=== PATIENT | male | born 1955 | race Caucasian/White ===

== ENCOUNTER 2018-10-22 11:01 | Inpatient (IN) | payer MEDICARE, MEDICAID, SELFPAY ==
[2018-10-22] VITALS (28 sets, daily range): BP systolic 92–123; BP diastolic 55–89; PULSE 64–151; RESP 20–35; TEMP 36.7–37.2; O2SAT 90–95; BMI 24.1; BMI 23.2
--- NOTE | 2018-10-22 11:24 | EKG12_ITS ---
Test Reason : CHEST PAIN Blood Pressure : / mmHG Vent. Rate : 138 BPM Atrial Rate : 133 BPM P-R Int : 000 ms QRS Dur : 068 ms QT Int : 314 ms P-R-T Axes : 000 009 122 degrees QTc Int : 475 ms Atrial fibrillation with rapid ventricular response Septal infarct , age undetermined T wave abnormality, consider lateral ischemia Abnormal ECG Confirmed by HENNY SLADE, SHEN ([id number]), video editor JOESPH CLAIRE ([id number]) on 10/28/2018 9:59:55 AM Referred By: Kim Barnhart Confirmed By:SHEN INMAN MD
--- NOTE | 2018-10-22 11:34 | ED.DCSUM_ITS ---
- ER Visit Summary Date of Service: 10/22/18 Chief Complaint: Shortness of breath History of Present Illness: The patient is a 62 M with history of dementia secondary from chronic alcohol abuse and dependence who is currently at a alf facility presents to the emergency department increasing dysp [place]. The patient states that he had shortness of breath for 6 months. However, based on history gathered from the nursing home assistant at the bedside he had increasing cough, productive sputum, and generalized malaise over the past 2 days. He does not think that he has fevers. He does have a history of COPD but is not on oxygen. He denies any chest pain. He denies any abdominal pain. He denies any leg swelling. He is unsure if he got a flu shot this year. Physical Examination: Vital signs reviewed General: Well-nourished, well-developed Head: Normocephalic, atraumatic Eyes: Pupils equal and reactive, extraocular muscles intact Neck, supple, no lymphadenopathy Heart: Irregular tachycardic rate and rhythm Respiratory: Diminished air movement in all willis Abdomen: Soft, nontender, nondistended, no peritoneal signs Back: Nontender Extremities: Nontender, no edema, no cords Skin: Normal color no rash Neuro: Alert and oriented, no focal or lateralizing deficits Test Results: [] Emergency Department Course and Treatment: [EKG was obtained on patient arrival. It did demonstrate atrial fibrillation with rapid ventricular response. The patient has no history of this. He was kept on a monitor. My concern was that this may be because of underlying infectious process. IV was established. Patient was given fluids. Screening labs are obtained were relatively unremarkable. His d-dimer was elevated. In light of his new A. fib, I did obtain a CTA of his chest. This does demonstrate multiple nonocclusive pulmonary emboli and a right lower lobe infiltrate. The patient was given diltiazem with improvement of his heart rate. At this time, I do feel that he can require admission especially given his hypoxia. He was covered for community-acquired pneumonia given his right lower lobe infiltrate. The patient was discussed with the hospitalist. He will be started on Eliquis and will be admitted to the PCU. Treatment Plan: [] Disposition: Admission Impression: 1. Community-acquired pneumonia 2. Multiple nonocclusive pulmonary emboli 3. New onset atrial fibrillation with rapid ventricular response 4. Hypoxia This note was generated with [employer] dictation software. It may contain incorrect words, spelling, and punctuation that were not noted in review of the chart prior to signing ED Disposition - Plan for ED Patient: Referrals: Maxi Steele [Primary Care Provider] -
--- NOTE | 2018-10-22 11:36 | RAD_ITS ---
STUDY: X-RAY CHEST REASON FOR EXAM: Male, 62 years old. Cough. Lethargy and shortness of breath. TECHNIQUE: Single AP portable view of the chest. COMPARISON: Comparison is made with prior study dated March 29, 2016. FINDINGS: EKG electrodes are seen. Mild degree of increased markings at the lung bases suggestive of bibasilar atelectasis and/or early infiltrate. Blunting of the right costophrenic angle. Normal size heart. Normal mediastinum and jan. Normal visualized pulmonary arteries. There is atherosclerotic tortuosity of the aortic arch and descending thoracic aorta. There are diffuse degenerative changes of the visualized thoracic spine. Healed bilateral rib fractures. There is no demonstrated abnormality of the visualized soft tissue structures of the upper abdomen. RAD/Chest 1 View (Portable) IMPRESSION: Increased markings at the lung bases suggestive of bibasilar atelectasis and/or infiltrates. Blunting of the right costophrenic angle. Electronically Signed: Harvinder Garcia MD at 12:28 EST , Service support ,
[2018-10-22 11:41] LABS: Allen Test POS; Base Excess 0 mmol/L (-2 to +2); Bicarbonate 24.9 mmol/L (22-26); Blood Gas Specimen Type ART; O2 Delivery Device Nasal Can; PO2 68 mmHG (75-100); SITE L Radial; SO2 93 % (95-99); Time Given 1125; Total Carbon Dioxide 26 mmol/L; pCO2 40.2 mmHg (35-45)
[2018-10-22] MEDS: Ipratropium/Albuterol Sulfate 3 ML AMPUL.NEB INHALATION ×4 (11:46→23:15)
[2018-10-22 11:53] LABS: Absolute Lymphocyte Count 0.89 X10^3/ul (0.83-4.51); Absolute Neutrophil Count 5.5 X10^3/uL (2.0-7.7); Basophil# 0.02 X10^3/uL; Basophil% 0.3 % (0-1); Eosinophil# 0.08 X10^3/uL; Eosinophils% 1.1 % (0-5); Hematocrit 41.9 % (40-54); Hemoglobin 13.8 g/dl (13.0-16.5); Lymphocyte # 0.89 X10^3/ul (4.0); Lymphocyte % 12.2 % (19-41); Mean Corp Hgb Conc 32.9 g/gl (32-36); Mean Corpuscular Hgb 30.9 pg (27.0-32.0); Mean Corpuscular Volume 93.9 fL (80-94); Mean Platelet Vol. 11.7 fl (6.2-12.0); Monocyte# 0.77 X10^3/uL; Monocyte% 10.6 % (0-10); Neutrophil # 5.51 X10^3/uL (2.7-7.7); Neutrophil % 75.8 % (47-70); Platelet Count 148 K/mm3 (150-450); RBC Distribution Width CV 13.8 % (11.6-14.6); RBC Distribution Width SD 47.4 fl (35.1-43.9); Red Blood Count 4.46 M/mm3 (4.6-6.2); White Blood Count 7.3 K/mm3 (4.4-11.0)
[2018-10-22] MEDS: Albuterol 2.5 MG/3 ML VIAL.NEB. INHALATION ×3 (11:53)
[2018-10-22 11:54] LABS: POSITIVE COUNT NO; POSITIVE DIFFERENTIAL NO; POSITIVE MORPHOLOGY NO; Partial Thromboplast Time 27.8 Seconds (24.1-36.2); Prothrombin Time (Protime)PT. 12.9 SECONDS (11.7-14.9)
[2018-10-22 11:59] LABS: D-Dimer Quantitative (DVT/PE) 1.03 FEU/ug/m (0.27-0.49)
--- NOTE | 2018-10-22 12:02 | CT_ITS ---
STUDY: CTA CHEST REASON FOR EXAM: Male, 62 years old. Hypoxia and cough. RADIATION DOSAGE (If Supplied By Facility): CTDIvol = ( 16.30 ) mGy, DLP = ( 613.14 ) mGycm TECHNIQUE: The examination was performed with the intravenous administration of 100CC ml of Isovue 370 contrast material. Post-processing of the angiographic images was performed, with multiplanar reformation and 3D reconstruction. Individualized dose optimization techniques were used for this CT. COMPARISON: None. FINDINGS: There are several small nonocclusive filling defects in branches of the lower lobe pulmonary artery branches suggestive of a pulmonary emboli. Normal thoracic aorta and visualized great vessels. There is no demonstrated aortic dissection. Normal heart and pericardium. Normal mediastinum. Normal hilar regions. Normal visualized trachea and bronchi. The lungs are well expanded. There is evidence of right lower lobe infiltrate. Small right pleural effusion. Mild increased markings at the left lung base suggestive of atelectasis. Normal chest wall structures. There are degenerative changes of thoracic spine. Normal visualized upper abdomen. CT/CTA Chest W/WO Contrast IMPRESSION: There are several small nonobstructive pulmonary emboli in the lower lobe pulmonary arterial branches. Right lower lobe infiltrate with small right pleural effusion. Atelectasis at the left lung base. Electronically Signed: Harvinder Garcia MD at 12:53 EST , Service support ,
--- NOTE | 2018-10-22 12:06 | ED.RN ---
LAB CALLS WITH CRITICAL RESULT, D-DIMER 1.03, DR. SOTO MADE AWARE.
[2018-10-22 12:11] LABS: ALB/GLOB Ratio 0.9 RATIO (0.9-2.4); AST(SGOT) 24 U/L (15-37); Alanine Aminotransfer ALT/SGPT 25 U/L (16-61); Alkaline Phosphatase 69 U/L (45-117); Anion Gap 8 (5-15); BUN 9 mg/dL (7-18); BUN/Creat Ratio 17.5 RATIO (10-20); Calcium,Total 8.3 mg/dL (8.5-10.1); Chloride 102 mmol/L (98-107); Creatinine, Serum 0.52 mg/dL (0.70-1.30); EST Glomerular Filtration Rate 172 mL/min (>60); Est Glom Filt Rate - Afr Amer 208 mL/min (>60); Estimated Creatinine Clearance 169.05 ml/min; Globulin 3.3 g/dL (2.2-4.2); Glucose 81 mg/dL (74-106); Potassium 3.8 mmol/L (3.5-5.1); Protein, Total 6.3 g/dL (6.4-8.2); Sodium Level 135 mmol/L (136-145)
[2018-10-22 12:43] LABS: Lactic Acid 1.2 mmol/L (0.4-2.0)
[2018-10-22] MEDS: dilTIAZem 25 MG/5 ML Vial 15 MG IV BOLUS (13:17)
--- NOTE | 2018-10-22 13:33 | NURSING ---
DR ALVAREZ FOR DR SOTO
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
--- NOTE | 2018-10-22 13:46 | NURSING ---
123 PAINTSIL PE, AFIB RVR
[2018-10-22] MEDS: Ceftriaxone 1 GM/50 ML BAG IV (13:52)
--- NOTE | 2018-10-22 14:54 | VDLE_ITS ---
Reason For Study: PE RIGHT LEFT GSV is normal. GSV is normal. CFV is compressible, spontaneous, phasic, CFV is compressible, spontaneous, phasic, competent and demonstrates normal competent, and demonstrates normal augmentation. augmentation. FV is compressible, spontaneous, phasic, FV is compressible, spontaneous, phasic, competent and demonstrates normal competent and demonstrates normal augmentation. augmentation. POP V is compressible, spontaneous, phasic, POP V is compressible, spontaneous, phasic, competent and demonstrates normal competent and demonstrates normal augmentation. augmentation. T/P Trunk is compressible. T/P Trunk is compressible. PTV is compressible. PTV is compressible. RT PerV is compressible. LT PerV is compressible. Procedure Exam performed portable in patient room. The exam was diagnostic. A preliminary report was called and/or faxed to the pt's RN. Interpretation Summary No evidence for acute deep venous thrombosis bilateral lower extremities with patent and compressible bilateral great saphenous veins. Ordering Physician: Kim Barnhart Performed By: Keith Bradford RVT
--- NOTE | 2018-10-22 14:54 | ECHOD_ITS ---
Reason For Study: AFIB Procedure This was a 2D Doppler, Color Flow transthoracic echocardiogram. Technically limited study due to several factors including 120-150bpm and pt breathing and coughing erratically. Exam performed portable in patient room. Left Ventricle Normal LV size. The estimated ejection fraction is 50 %. Unable to assess diastolic dysfunction due to arrhythmia. There is mild global hypokinesis of the left ventricle. Right Ventricle Normal RV size. Normal systolic function. Atria The left atrium is mildly enlarged. The right atrium is mildly enlarged. Mitral Valve Normal mitral valve. Tricuspid Valve Normal tricuspid valve. Mild to moderate (1-2+) tricuspid valve insufficiency. Pulmonary artery systolic pressure is 40 mmHg. Aortic Valve Trisinus/trileaflet aortic valve. Pulmonic Valve Normal pulmonic valve. Great Vessels Normal aortic root. The pulmonary artery is normal size. Normal inferior vena cava. Pericardium/Pleural No pericardial effusion. MMode/2D Measurements & Calculations LVIDd: 4.0 cm IVSd: 1.0 cm Ao root diam: 3.0 cm LVIDs: 3.0 cm LVPWd: 1.1 cm RVDd: 4.1 cm FS: 26.9 % LAV(MOD-bp): 70.8 ml LA A4 area: 25.5 cm2 LA dimension(2D): 4.1 cm LAV(MOD-bp) Indexed: 33.3 ml/m2 LAV(MOD-sp2): 49.0 ml LAV(MOD-sp4): 74.0 ml RA A4 area: 23.4 cm2 Doppler Measurements & Calculations Ao V2 max: 153.8 cm/sec LV V1 max: 84.4 cm/sec TR max db: 300.0 cm/sec Ao max P.5 mmHg LV V1 max P.9 mmHg TR max P.0 mmHg Interpretation Summary Normal LV size. The estimated ejection fraction is 50 %. There is mild global hypokinesis of the left ventricle. Pulmonary artery systolic pressure is 40 mmHg. Unable to assess diastolic dysfunction due to arrhythmia. Ordering Physician: Kim Barnhart Referring Physician: SEA RODRIGUEZ Performed By: Clau Ayon, RDCS, RVT
--- NOTE | 2018-10-22 15:17 | CASEMGMT ---
RN CM Assessment Presentation: Afib with RVR, CAP, PMHx: schizoaffective disorder, dementia, hx ETOH abuse, Seizure PCP: Dr. Maxi Steele Preferred Pharmacy: [facility] Insurance: [facility] part B, [facility] Prescription Benefit: yes LNOK: Aaron Parra, Guardian (not in demographics. Mejia CARRERA obtaining detailed information. Living Arrangements: [facility] DC PLAN: Return to SNF on discharge
[2018-10-22 15:21] LABS: Magnesium 2.1 mg/dL (1.6-2.6); Thyroid Stim Hormone (TSH) 2.55 uIU/mL (0.358-3.74)
[2018-10-22] MEDS: 0.9% Normal Saline 1,000 ML 75 ML IV (15:25)
--- NOTE | 2018-10-22 15:34 | CASEMGMT ---
Patient is from [facility]. He has a legal guardian named Ramez Parra. 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 SW to follow for d/c back to [facility]. Melani WASHINGTON MSW
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
--- NOTE | 2018-10-22 17:08 | EKG12_ITS ---
Test Reason : CONVERT TO NSR Blood Pressure : / mmHG Vent. Rate : 073 BPM Atrial Rate : 073 BPM P-R Int : 162 ms QRS Dur : 070 ms QT Int : 410 ms P-R-T Axes : 062 034 -81 degrees QTc Int : 451 ms Sinus rhythm with frequent Premature ventricular complexes T wave abnormality, consider inferior ischemia T wave abnormality, consider anterolateral ischemia Abnormal ECG Confirmed by HENNY SLADE, SHEN ([id number]), desk editor JOESPH CLAIRE ([id number] on 10/28/2018 11:24:46 AM Referred By: Kim Barnhart Confirmed By:SHEN INMAN MD
[2018-10-22] MEDS: OLANZapine 2.5 MG Tablet PO (17:42)
[2018-10-22] MEDS: APIXABAN 5 MG TABLET 10 MG PO (17:42)
[2018-10-22] MEDS: dilTIAZem CD 120 MG Capsule PO (17:43)
--- NOTE | 2018-10-22 19:45 | NURSING ---
pt in w/ PE, hpoxia, pna, afib, prior nurse had difficulty w/ med administration. swallow eval completed, pt w/ wet moist cough prior, no difficulties w/ swallowing liquid or applesauce. Speech therapy to eval pt 2/ for precautionary measure.
[2018-10-22] MEDS: Budesonide Respules 0.5 MG/2 ML AMPUL.NEB. INHALATION (19:52)
[2018-10-22 22:41] LABS: Bacteria 0 SEEN /hpf (None Seen); Mucous, Urine 0 SEEN /hpf (<or=2+); Red Blood Cells-Urine 0 SEEN /hpf (0-5)
[2018-10-22 22:44] LABS: Color, Urine Yellow (Yellow); Glucose, Dipstick Normal (Normal); Ketone-Dipstick 5 mg/dl (Negative); Leukocyte Esterase-Dipstick 100 /ul (Negative); Nitrite-Dipstick Negative (Negative); Occult Blood-Urine 10 /ul (Negative); Protein-Dipstick 30 mg/dl (Negative); Specific Gravity, Urine 1.005 (1.002-1.030); Urine Bilirubin Dipstick Negative (Negative); Urine Clarity Clear (Clear); Urine Urobilinogen Normal (Normal)
[2018-10-22 22:52] LABS: Squamous Epithelial Cells - UA 0-5 SEEN /hpf (0-5); White Blood Cells 0-5 SEEN /hpf (0-5)
[2018-10-23] VITALS (24 sets, daily range): BP systolic 101–126; BP diastolic 63–82; PULSE 57–78; RESP 16–26; TEMP 36.7–37.1; O2SAT 90–98
[2018-10-23] MEDS: Ipratropium/Albuterol Sulfate 3 ML AMPUL.NEB INHALATION ×5 (02:44→18:14)
[2018-10-23] MEDS: 0.9% Normal Saline 1,000 ML 75 ML IV (03:46)
[2018-10-23] MEDS: OLANZapine 2.5 MG Tablet PO ×3 (05:47→22:30)
[2018-10-23] MEDS: Budesonide Respules 0.5 MG/2 ML AMPUL.NEB. INHALATION ×2 (06:41→18:14)
[2018-10-23 06:46] LABS: Anion Gap 8 (5-15); BUN 9 mg/dL (7-18); BUN/Creat Ratio 18.3 RATIO (10-20); Chloride 108 mmol/L (98-107); Cholesterol 81 mg/dL (200); Creatinine, Serum 0.49 mg/dL (0.70-1.30); EST Glomerular Filtration Rate 181 mL/min (>60); Est Glom Filt Rate - Afr Amer 219 mL/min (>60); Estimated Creatinine Clearance 189.01 ml/min; Glucose 83 mg/dL (74-106); High Density Lipoprotein 35 mg/dL; Potassium 3.8 mmol/L (3.5-5.1); Sodium Level 142 mmol/L (136-145); Triglycerides 54 mg/dL; Very Low Density Lipoprotein 11 mg/dL (5-40)
[2018-10-23] MEDS: Aspirin 81 MG TAB.CHEW PO (08:34)
--- NOTE | 2018-10-23 09:08 | PCM.PN.BLA ---
Progress Note Remains in normal sinus rhythm. Occasional PVC on telemetry. Start on low-dose beta-yolanda. Recommend stress test as outpatient for EKG changes. Follow-up with cardiology as outpatient after discharge.
[2018-10-23] MEDS: Ceftriaxone 1 GM/50 ML BAG IV (09:44)
[2018-10-23] MEDS: APIXABAN 5 MG TABLET 10 MG PO ×2 (09:45→22:29)
[2018-10-23] MEDS: Metoprolol Tartrate 25 MG Tablet 12.5 MG PO ×2 (09:45→22:30)
[2018-10-23] MEDS: dilTIAZem CD 120 MG Capsule PO (09:46)
--- NOTE | 2018-10-23 13:40 | CASEMGMT ---
DEBI faxed clinicals to [facility]. Melani WASHINGTON PHYSICAL THERAPY ASSISTANT INSTRUCTOR
--- NOTE | 2018-10-23 14:45 | PCM.PROGNOTE ---
<Yuliana Dowd - Last Filed: 10/23/18 15:03> Patient Problems: Active and Suspected Problems Atrial fibrillation with RVR (Acute) Pulmonary emboli (Acute) CAP (community acquired pneumonia) (Acute) Dementia (Acute) Nicotine dependence (Acute) Seizure (Suspected) Subjective: Patient seen and examined. Flat affect. Denies current complaints. Denies shortness of breath. - Physical Exam General: Alert, Cooperative, No apparent distress HEENT: Atraumatic, PERRLA, EOMI, Normocephalic Oral: Moist Mucosa Neck: Supple, No JVD, Negative Carotid Bruits Lungs: Clear to auscultation, Diminished Cardiovascular: Regular rate, Regular Rhythm, Normal S1, Normal S2, No murmurs Abdomen: Bowel Sounds Present, Soft, Non Tender, Non-Distended Extremities: No clubbing, No cyanosis, No edema, Capillary Refill Less than 3 Seconds Skin: No rashes, No breakdown Musculoskeletal: No Tenderness to Palpation of Joints or Extremities Neurological: Cranial nerves II-XII grossly intact, Neuro grossly intact Psych/Mental Status: Flat Affect Vital Signs Temp Pulse Resp BP Pulse Ox 98.4 F 64 20 H 114/82 H 94 10/23/18 13:35 10/23/18 13:35 10/23/18 13:35 10/23/18 13:35 10/23/18 13:37 Oxygen Flow Rate (L/min) 4 Oxygen Delivery Method Nasal Cannula Weight: 190 lb 14.725 oz Body Mass Index (BMI) 23.2 Intake and Output for Last 24 Hours 10/21/18 10/22/18 10/23/18 23:59 23:59 23:59 Intake Total 780 / 780 1382 / 1382 Output Total 650 / 650 475 / 475 Balance 130 / 130 907 / 907 Microbiology Past 72 Hours 10/22/18 15:18 Respiratory Panel (PCR) - Final Mucosa - Nose 10/22/18 22:36 Streptococcus pneumoniae Antigen (M - Final Urine, Clean Catch Streptococcus pneumonia Ag 10/22/18 22:36 Legionella Antigen - Final Urine, Clean Catch Laboratory Tests Past 24 Hrs 10/22/18 10/22/18 10/22/18 11:33 15:36 18:22 Sodium Potassium Chloride Carbon Dioxide Anion Gap BUN Creatinine Estim Creat Clear Calc Est GFR (MDRD) Af Amer Est GFR (MDRD) Non-Af BUN/Creatinine Ratio Glucose Calcium Magnesium 2.1 Troponin I < 0.015 < 0.015 Triglycerides Cholesterol LDL Cholesterol VLDL Cholesterol HDL Cholesterol TSH 2.55 Urine Color Urine Clarity Urine pH Ur Specific [place] Urine Protein Urine Glucose (UA) Urine Ketones Urine Occult Blood Urine Nitrite Urine Bilirubin Urine Urobilinogen Ur Leukocyte Esterase Urine RBC Urine WBC Ur Squamous Epith Cells Urine Bacteria Urine Mucus 10/22/18 10/23/18 22:36 05:45 Sodium 142 Potassium 3.8 Chloride 108 H Carbon Dioxide 26.0 Anion Gap 8 BUN 9 Creatinine 0.49 L Estim Creat Clear Calc 189.01 Est GFR (MDRD) Af Amer 219 Est GFR (MDRD) Non-Af 181 BUN/Creatinine Ratio 18.3 Glucose 83 Calcium 8.0 L Magnesium Troponin I Triglycerides 54 Cholesterol 81 LDL Cholesterol 35 VLDL Cholesterol 11 HDL Cholesterol 35 L TSH Urine Color Yellow Urine Clarity Clear Urine pH 7.0 Ur Specific [place] 1.005 Urine Protein 30 H Urine Glucose (UA) Normal Urine Ketones 5 H Urine Occult Blood 10 H Urine Nitrite Negative Urine Bilirubin Negative Urine Urobilinogen Normal Ur Leukocyte Esterase 100 H Urine RBC 0 SEEN Urine WBC 0-5 SEEN Ur Squamous Epith Cells 0-5 SEEN Urine Bacteria 0 SEEN Urine Mucus 0 SEEN Medical Necessity - Tobacco Use Smoking Status: Current every day smoker Tobacco Use: Cigarettes Assessment/Plan All Active Problems Atrial fibrillation with RVR (Acute) Pulmonary emboli (Acute) CAP (community acquired pneumonia) (Acute) Dementia (Acute) Nicotine dependence (Acute) 1. Acute hypoxic respiratory insufficiency secondary to acute pulmonary embolism and community acquired pneumonia-continue supplement oxygen to maintain O2 at or above 90%. 2. Acute pulmonary embolism-chest CTA with several nonobstructive pulmonary emboli in the lower lobe pulmonary arterial branches. Right lower lobe infiltrate with small right pleural effusion. Started on Eliquis. Echocardiogram with EF 50%, pulmonary artery systolic pressure 40 mmHg. 3. Acute community-acquired right-sided strep pneumonia-chest x-ray admission with right-sided pneumonia. Continue IV azithromycin and IV Rocephin. Respiratory panel negative. Urine positive for Streptococcus pneumonia. Send sputum for culture. Albuterol and DuoNeb aerosols. 4. Atrial fibrillation with RVR-cardiology following. Currently SR. Started on beta-yolanda. Continue Eliquis. Cardiology recommending outpatient stress test. 5. Chronic COPD-no acute exacerbation. PRN albuterol. 6. Schizoaffective disorder/frontotemporal dementia/anxiety/depression/chronic alcohol dependence-continue home Zyprexa, Ativan regimen. 7. Tobacco dependence-encouraged smoking cessation. DVT prophylaxis-Eliquis. Discharge planning: Return to SNF when medically stable. This patient was seen by NIHARIKA Fitch under the supervision of Dr. Eugene. <Kerwin Eugene F - Last Filed: 10/23/18 18:20> - Physical Exam Vital Signs Temp Pulse Resp BP Pulse Ox 98.2 F 66 20 H 125/76 H 97 10/23/18 16:21 10/23/18 16:21 10/23/18 16:21 10/23/18 16:21 10/23/18 16:21 Oxygen Flow Rate (L/min) 4 Oxygen Delivery Method Nasal Cannula Weight: 190 lb 14.725 oz Body Mass Index (BMI) 23.2 Intake and Output for Last 24 Hours 10/21/18 10/22/18 10/23/18 23:59 23:59 23:59 Intake Total 780 / 780 1742 / 1742 Output Total 650 / 650 975 / 975 Balance 130 / 130 767 / 767 Microbiology Past 72 Hours 10/22/18 15:18 Respiratory Panel (PCR) - Final Mucosa - Nose 10/22/18 22:36 Streptococcus pneumoniae Antigen (M - Final Urine, Clean Catch Streptococcus pneumonia Ag 10/22/18 22:36 Legionella Antigen - Final Urine, Clean Catch Laboratory Tests Past 24 Hrs 10/22/18 10/22/18 10/23/18 18:22 22:36 05:45 Sodium 142 Potassium 3.8 Chloride 108 H Carbon Dioxide 26.0 Anion Gap 8 BUN 9 Creatinine 0.49 L Estim Creat Clear Calc 189.01 Est GFR (MDRD) Af Amer 219 Est GFR (MDRD) Non-Af 181 BUN/Creatinine Ratio 18.3 Glucose 83 Calcium 8.0 L Troponin I < 0.015 Triglycerides 54 Cholesterol 81 LDL Cholesterol 35 VLDL Cholesterol 11 HDL Cholesterol 35 L Urine Color Yellow Urine Clarity Clear Urine pH 7.0 Ur Specific [place] 1.005 Urine Protein 30 H Urine Glucose (UA) Normal Urine Ketones 5 H Urine Occult Blood 10 H Urine Nitrite Negative Urine Bilirubin Negative Urine Urobilinogen Normal Ur Leukocyte Esterase 100 H Urine RBC 0 SEEN Urine WBC 0-5 SEEN Ur Squamous Epith Cells 0-5 SEEN Urine Bacteria 0 SEEN Urine Mucus 0 SEEN Code Visit Addendum: Dr. Eugene I personally examined the patient and reviewed the chart. I agree with the above. 62-year-old male with schizoaffective disorder and right frontal temporal dementia secondary to alcohol abuse presenting with lethargy. Found to have a pneumonia, the strep urine antigen is positive therefore can discontinue the azithromycin. Also he was found to have a PE and was started on Eliquis. Also went into new A. fib with RVR likely secondary to the PE and the pneumonia. Cardiology was consulted and he was able to discontinue the Cardizem drip because he had spontaneous he converted back to normal sinus. He will be continued on Cardizem as an outpatient as well as the Eliquis for the PE. 2D echo with mild global hypokinesis and an EF of 50%. We will continue to monitor and discharge will be dependent on his oxygen use and tolerance of medications. Inpatient E&M: 71127 Subs Hosp L2
[2018-10-24] VITALS (21 sets, daily range): BP systolic 105–142; BP diastolic 57–89; PULSE 60–168; RESP 16–26; TEMP 36.6–37; O2SAT 95–97
[2018-10-24] MEDS: OLANZapine 2.5 MG Tablet PO ×3 (06:25→21:21)
[2018-10-24] MEDS: Budesonide Respules 0.5 MG/2 ML AMPUL.NEB. INHALATION (07:30)
[2018-10-24] MEDS: Ipratropium/Albuterol Sulfate 3 ML AMPUL.NEB INHALATION ×3 (07:30→15:54)
[2018-10-24] MEDS: Aspirin 81 MG TAB.CHEW PO (07:45)
[2018-10-24] MEDS: Metoprolol Tartrate 25 MG Tablet 12.5 MG PO ×2 (08:27→12:00)
[2018-10-24] MEDS: dilTIAZem CD 120 MG Capsule PO (08:28)
--- NOTE | 2018-10-24 08:33 | EKG12_ITS ---
Test Reason : RHYTHM Blood Pressure : / mmHG Vent. Rate : 140 BPM Atrial Rate : 280 BPM P-R Int : 000 ms QRS Dur : 072 ms QT Int : 256 ms P-R-T Axes : 000 003 208 degrees QTc Int : 390 ms Atrial flutter with variable A-V block with premature ventricular or aberrantly conducted complexes ST & T wave abnormality, consider inferior ischemia Abnormal ECG Confirmed by HENNY SLADE, SHEN ([id number]), scientific publications editor JOESPH CLAIRE ([id number]) on 10/31/2018 11:51:46 AM Referred By: Kim Barnhart Confirmed By:SHEN INMAN MD
[2018-10-24] MEDS: Metoprolol Tartrate 5 MG/5 ML Vial IV (08:58)
[2018-10-24] MEDS: APIXABAN 5 MG TABLET 10 MG PO ×2 (09:23→21:21)
[2018-10-24] MEDS: Ceftriaxone 1 GM/50 ML BAG IV (09:26)
[2018-10-24] MEDS: LORazepam 1 MG Tablet 2 MG PO (12:59)
--- NOTE | 2018-10-24 13:26 | PN_ITS ---
Addendum entered and electronically signed by GISELLA Quiroz 10/24/18 13:56: Code Visit Patient requesting nicotine patch. He continues to smoke at the SNF about 10 cigarettes per day. Original Note: <Carlos Enrique Robles - Last Filed: 10/24/18 13:56> Patient Problems: Active and Suspected Problems Atrial fibrillation with RVR (Acute) Pulmonary emboli (Acute) CAP (community acquired pneumonia) (Acute) Dementia (Acute) Nicotine dependence (Acute) Seizure (Suspected) Subjective: Pt with increased heart rate into 160s this AM. Did receive oral cardizem and metoprolol. No CP. No sensation of palpitation. Mild SOB. Sitting upright in chair NAD. - Physical Exam General: Alert, Oriented x3, Cooperative HEENT: Atraumatic, PERRLA, EOMI, Normocephalic Neck: Supple, No JVD, Negative Carotid Bruits Lungs: Diminished, Rales Cardiovascular: Regular rate, No murmurs Abdomen: Bowel Sounds Present, Soft, Non Tender Extremities: No edema, Capillary Refill Less than 3 Seconds Skin: No rashes, No breakdown Musculoskeletal: No Tenderness to Palpation of Joints or Extremities Neurological: Cranial nerves II-XII grossly intact Psych/Mental Status: Normal Affect, Appropriate, Alert and oriented to time, place, person, mood and affect Vital Signs Temp Pulse Resp BP Pulse Ox 98.3 F 87 20 H 105/69 95 10/24/18 13:07 10/24/18 13:07 10/24/18 13:07 10/24/18 13:07 10/24/18 13:09 Oxygen Flow Rate (L/min) 3 Oxygen Delivery Method Nasal Cannula Weight: 190 lb 14.725 oz Body Mass Index (BMI) 23.2 Intake and Output for Last 24 Hours 10/22/18 10/23/18 10/24/18 23:59 23:59 23:59 Intake Total 780 / 780 1862 / 1862 410 / 410 Output Total 650 / 650 975 / 975 Balance 130 / 130 887 / 887 410 / 410 Microbiology Past 72 Hours 10/22/18 11:35 Blood Culture - Preliminary Blood Culture (Wb) - Right Forearm No growth in 48 hours. 10/22/18 11:35 Blood Culture - Preliminary Blood Culture (Wb) - Left Forearm No growth in 48 hours. 10/22/18 15:18 Respiratory Panel (PCR) - Final Mucosa - Nose 10/22/18 22:36 Streptococcus pneumoniae Antigen (M - Final Urine, Clean Catch Streptococcus pneumonia Ag 10/22/18 22:36 Legionella Antigen - Final Urine, Clean Catch Medical Necessity - Tobacco Use Smoking Status: Current every day smoker Tobacco Use: Cigarettes Assessment/Plan All Active Problems Atrial fibrillation with RVR (Acute) Pulmonary emboli (Acute) CAP (community acquired pneumonia) (Acute) Dementia (Acute) Nicotine dependence (Acute) 1. Afib RVR - metoprolol increased. Given IV lopressor this AM. Pulse now down to 87. BP stable. On eliquis. Troponin negative x3. TSH 2.55. 2. Acute PE - eliquis. Echo with mild global hypokinesis left vent. 3. Acute CAP - RLL infiltrate, productive cough with rales on exam. Strep antigen positive. Continue Rocephin, discontinue azithromycin. Respiratory panel negative. Legionella antigen negative, blood culture negative at 48 hours. No fever or leukocytosis. 4. Chronic COPD 2/2 lifetime nicotine abuse - PRN aerosols. 5. Schizoaffective disorder, dementia, anxiety, depression, hx alcohol abuse - continue home regimen. SNF will send sitter if behavior changes. Currently pleasant affect DVT ppx: eliquis DC planning: Return to SNF. Monitor HR overnight This patient was seen by Carlos Enrique Robles PA-C under the supervision of Doctor Jabier. <Kerwin Eugene F - Last Filed: 10/24/18 14:44> - Physical Exam Vital Signs Temp Pulse Resp BP Pulse Ox 98.3 F 87 20 H 105/69 95 10/24/18 13:07 10/24/18 13:07 10/24/18 13:07 10/24/18 13:07 10/24/18 13:09 Oxygen Flow Rate (L/min) 3 Oxygen Delivery Method Nasal Cannula Weight: 190 lb 14.725 oz Body Mass Index (BMI) 23.2 Intake and Output for Last 24 Hours 10/22/18 10/23/18 10/24/18 23:59 23:59 23:59 Intake Total 780 / 780 1862 / 1862 410 / 410 Output Total 650 / 650 975 / 975 Balance 130 / 130 887 / 887 410 / 410 Microbiology Past 72 Hours 10/22/18 11:35 Blood Culture - Preliminary Blood Culture (Wb) - Right Forearm No growth in 48 hours. 10/22/18 11:35 Blood Culture - Preliminary Blood Culture (Wb) - Left Forearm No growth in 48 hours. 10/22/18 15:18 Respiratory Panel (PCR) - Final Mucosa - Nose 10/22/18 22:36 Streptococcus pneumoniae Antigen (M - Final Urine, Clean Catch Streptococcus pneumonia Ag 10/22/18 22:36 Legionella Antigen - Final Urine, Clean Catch Code Visit Addendum: Dr. Eugene I personally examined the patient and reviewed the chart. I agree with the above. 62-year-old male presenting with an acute onset of PE, A. fib with RVR, and pneumonia secondary to strep pneumonia. We will continue with Rocephin twice daily as well as Eliquis. He did become tachycardic again today so we continued his Cardizem 120 and increased his metoprolol from 12-1/2 twice daily to 25 twice daily. If his heart rate is stable in the morning and he is feeling better can plan for discharge back to his detention. Inpatient E&M: 49857 Subs Hosp L2
[2018-10-24] MEDS: Metoprolol Tartrate 25 MG Tablet PO (18:31)
[2018-10-24] MEDS: Metoprolol Tartrate 50 MG Tablet PO (18:57)
[2018-10-25] VITALS (11 sets, daily range): BP systolic 122–140; BP diastolic 69–89; PULSE 64–121; RESP 14–20; TEMP 36.4–36.8; O2SAT 92–98
[2018-10-25] MEDS: OLANZapine 2.5 MG Tablet PO ×2 (05:33→13:48)
[2018-10-25] MEDS: Ipratropium/Albuterol Sulfate 3 ML AMPUL.NEB INHALATION ×2 (07:13→10:40)
[2018-10-25] MEDS: Budesonide Respules 0.5 MG/2 ML AMPUL.NEB. INHALATION (07:14)
[2018-10-25] MEDS: Metoprolol Tartrate 50 MG Tablet PO (08:58)
[2018-10-25] MEDS: dilTIAZem CD 120 MG Capsule PO (08:59)
[2018-10-25] MEDS: Aspirin 81 MG TAB.CHEW PO (08:59)
[2018-10-25] MEDS: APIXABAN 5 MG TABLET 10 MG PO (08:59)
[2018-10-25] MEDS: 0.9% NaCl Peripheral Flush Adult/Peds IV (09:00)
[2018-10-25] MEDS: Ceftriaxone 1 GM/50 ML BAG IV (09:00)
--- NOTE | 2018-10-25 09:53 | CASEMGMT ---
Faxed updates to [facility]. Melani WASHINGTON [employer]ILD C[employer] ATTENDANT [employer]
--- NOTE | 2018-10-25 13:31 | CASEMGMT ---
DEBI called [facility] and let them know patient will be returning today. DEBI also called his guardian, Ramez and let him know. Once orders completed they will be faxed and transport will be set up. Green sheet on chart. Plan: d/c back to [facility] under intermediate level of care. Melani WASHINGTON MSW
--- NOTE | 2018-10-25 14:18 | EKG12_ITS ---
Test Reason : CONVERSION TO SR Blood Pressure : / mmHG Vent. Rate : 057 BPM Atrial Rate : 057 BPM P-R Int : 156 ms QRS Dur : 070 ms QT Int : 432 ms P-R-T Axes : 044 -10 016 degrees QTc Int : 420 ms Sinus bradycardia Possible Left atrial enlargement Borderline ECG When compared with ECG of 24-OCT-2018 08:39, MANUAL COMPARISON REQUIRED, DATA IS UNCONFIRMED Confirmed by HENNY SLADE, SHEN ([id number]), staff editor JOESPH CLAIRE ([id number]) on 10/31/2018 11:46:02 AM Referred By: Kim Barnhart Confirmed By:SHEN INMAN MD
--- NOTE | 2018-10-25 14:39 | PCM.TXEXTCAR ---
- Diet 10/22/18 14:54 Diet: Cardiac/Low Cholesterol Food consistency:: Mechanical Soft/Ground Liquid Consistency:: Regular/Thin Dietary Modifications:: Mechanical Soft Diet Diet Comments: Seated upright at 90 degrees; use straws; meds w/ purees - Allergies/Procedures Done in Hospital Allergies/Adverse Reactions: Allergies Penicillins Allergy (Verified 10/22/18 11:47) Unknown - Type of Care/Length of Stay Estimated LOS: Convalescent Care Less Than 30 days Type of Care Needed: Intermediate Rehab Potential: Good Prognosis: Good - Additional Orders/Day of Discharge Day of Discharge: 10/25/18 - Follow Up Care Primary Care Physician: Maxi Steele [Primary Care Provider] - Please follow up with your Primary Care Physician in: 3-5 days
--- NOTE | 2018-10-25 14:47 | NURSING ---
report called to Gloria AMAYA at [facility]
--- NOTE | 2018-10-25 14:56 | CASEMGMT ---
[place] [facility] [facility] and they did not have and wc vans available. DEBI called [facility] and they can come and hot die picker patient now. DEBI notified RN, patient, legal secretary receptionist, and [facility] [facility] [place]. [facility] Care transported via wc van. Melani GOMEZ
--- NOTE | 2018-10-25 15:23 | PCM.DC.SUM ---
Discharge Date and Diagnosis Date of Admission: 10/22/18 Date of Discharge: 10/25/18 - Secondary Discharge Diagnosis Chronic Problems Schizoaffective disorder (Chronic) Chronic alcohol abuse (Chronic) Chronic hepatitis C (Chronic) Hypertension (Chronic) COPD (chronic obstructive pulmonary disease) (Chronic) Hospital Course and Treatment Imaging Results: CXR: IMPRESSION: Increased markings at the lung bases suggestive of bibasilar atelectasis and/or infiltrates. Blunting of the right costophrenic angle CTA Chest: IMPRESSION: There are several small nonobstructive pulmonary emboli in the lower lobe pulmonary arterial branches. Right lower lobe infiltrate with small right pleural effusion. Atelectasis at the left lung base. Consults: Cardiology Operations: None Procedures: 2-D Echocardiogram - Interpretation Summary Normal LV size. The estimated ejection fraction is 50 %. There is mild global hypokinesis of the left ventricle. Pulmonary artery systolic pressure is 40 mmHg. Unable to assess diastolic dysfunction due to arrhythmia., - - Interpretation Summary No evidence for acute deep venous thrombosis bilateral lower extremities with patent and compressible bilateral great saphenous veins. Summary of Care Provided: Per HPI: The patient is a 62 year old M with past medical history of frontotemporal dementia secondary to chronic alcohol abuse, asthma/COPD schizoaffective disorder, resident in psychiatry intermediate facility, chronic hep C, hypertension, history of seizure a year ago, not on anti seizure meds comes in with complaints of fever, chills, cough, worsening shortness of breath, ongoing for 2 weeks. Patient was said to be increasingly lethargic, had upper respiratory symptoms and subsequently had progressive cough, productive of brownish sputum. He denied any nausea or vomiting or diarrhea. Admits to right-sided sharp chest pain, nonradiating, not associated with diaphoresis. Vitals in the ED showed temperature of 98.9F, heart rate 151, blood pressure 110/89, respiratory 22, SPO2 90% on room air, improved to 95% on 4 L. Admitting blood work showed RBC count of 7.3, Hb 13.8, platelet 148, INR 1.2 APTT 27.8, d-dimer 1.03, ABG shows hypoxia, compensated. BMP shows sodium 138, potassium 3.8, chloride 102, bicarbonate 25, BUN 89, creatinine 0.52, lactic acid 1.2. Troponin is less than 0.015 Admitting chest x-ray showed increased markings in the lung bases suggestive of bibasilar atelectasis and/or infiltrate, blunting of the right costal phrenic angle. CTA of the chest showed several small normal lucent filling defects in the branches of the lower lobe, right lower lobe infiltrate, right pleural effusion, left lung atelectasis Hospital Course: 1. New onset A. fib with RVR likely secondary to an acute pulmonary embolism in the setting of acute streptococcal [id number] male with past medical history of frontotemporal dementia secondary to chronic alcohol abuse as well as COPD and schizoaffective disorder presented from his psychiatric intermediate facility with shortness of breath, cough, lethargy. In the ER he was found to be tachycardic to 151 and in A. fib, as well has an elevated d-dimer to 1.03, which necessitated a CTA of his chest which demonstrated PEs. During the evaluation he was also noted to have a right lower lobe infiltrate and urine antigen came back positive for strep and negative for Legionella. He was initiated on Eliquis 10 mg p.o. twice daily for 1 week followed by 5 mg p.o. twice daily daily, which she has tolerated well. He was also initiated on Rocephin and azithromycin, the azithromycin was discontinued when he was found to be positive for strep antigen, and will need to finish 4 more days of Omnicef 300 mg p.o. twice daily. As for his A. fib, he had a TSH which was normal, and an echo which showed mild global hypokinesis with an EF of 50%. Cardiology was consulted and initially started him on Cardizem 120 mg daily as well as low-dose Lopressor at 12.5 twice daily. He was transitioned to 50 mg metoprolol twice daily and his Cardizem was discontinued. On the day of discharge he spontaneously converted to normal sinus and was slightly bradycardic with heart rates in the high 50s low 60s. He was also off oxygen and was maintaining his oxygen saturations on room air in the mid 90s. 2. His other medical diagnoses were evaluated and his home medications were continued where appropriate - Physical Exam General: Alert, Oriented x3, Cooperative, No apparent distress HEENT: Atraumatic, PERRLA, EOMI, Normocephalic Oral: Moist Mucosa Neck: Supple, No JVD, Trachea Midline Lungs: Normal air movement, No rhonchi, No rales, Wheezes Cardiovascular: Regular rate, Regular Rhythm, Normal S1, Normal S2, No murmurs Abdomen: Soft, Non Tender, Non-Distended, No Hepato-splenomegaly Extremities: No edema, Capillary Refill Less than 3 Seconds Skin: No rashes, No breakdown Neurological: Neuro grossly intact, Sensory exam intact to light touch and pain Psych/Mental Status: Normal Affect, Appropriate Vital Signs Temp Pulse Resp BP Pulse Ox 97.6 F L 64 14 122/75 H 96 10/25/18 14:59 10/25/18 14:59 10/25/18 14:59 10/25/18 14:59 10/25/18 14:59 Oxygen Flow Rate (L/min) 2 Oxygen Delivery Method Room Air Weight: 190 lb 14.725 oz Body Mass Index (BMI) 23.2 Intake and Output for Last 24 Hours 10/23/18 10/24/18 10/25/18 23:59 23:59 23:59 Intake Total 1862 / 1862 900 / 900 1470 / 1470 Output Total 975 / 975 Balance 887 / 887 900 / 900 1470 / 1470 Microbiology Past 72 Hours 10/22/18 11:35 Blood Culture - Preliminary Blood Culture (Wb) - Right Forearm No growth in 48 hours. 10/22/18 11:35 Blood Culture - Preliminary Blood Culture (Wb) - Left Forearm No growth in 48 hours. 10/22/18 15:18 Respiratory Panel (PCR) - Final Mucosa - Nose 10/22/18 22:36 Streptococcus pneumoniae Antigen (M - Final Urine, Clean Catch Streptococcus pneumonia Ag 10/22/18 22:36 Legionella Antigen - Final Urine, Clean Catch Home Medications: Medications to take at Discharge Acetaminophen [Tylenol] 650 mg PO Q4H PRN 10/22/18 Aspirin [Aspirin, Baby] 81 mg PO DAILY@0800 10/22/18 Cholecalciferol (Vitamin D3) [Vitamin D3] 50,000 unit PO QMONTH 10/22/18 Citalopram Hydrobromide [Citalopram HBr] 30 mg PO DAILY 10/22/18 Citalopram [Celexa] 30 mg PO DAILY 10/22/18 Fludrocortisone Acetate 0.1 mg PO DAILY 10/22/18 Fluticasone/Vilanterol [Breo Ellipta 100-25 Mcg INH] 1 each IH DAILY 10/22/18 Guaifenesin [Tussin] 10 ml PO Q4H PRN 10/22/18 Haloperidol 5 mg PO Q6H 10/22/18 Haloperidol Decanoate 100 mg IM UD 10/22/18 Haloperidol Lactate 1 ml PO TID 10/22/18 Haloperidol Lactate 2 ml PO DAILY 10/22/18 [place] Carbonate 300 mg PO TID 10/22/18 Lorazepam [Ativan] 2 mg IM Q4H PRN 10/22/18 Lorazepam [Ativan] 2 mg PO Q4H PRN PRN 10/22/18 Lorazepam [Ativan] 2 mg PO TID 10/22/18 Olanzapine [Zyprexa] 2.5 mg PO TID 10/22/18 traZODone [Desyrel] 50 mg PO QHS 10/22/18 Apixaban [Eliquis] 10 mg PO BID tablet 10/25/18 Cefdinir [Omnicef [equiv]] 300 mg PO Q12H #8 capsule 10/25/18 Metoprolol Tartrate [Lopressor (beta yolanda)] 50 mg PO BID tablet 10/25/18 Following Prescrptions Were Given to Patient: Cefdinir [Omnicef [equiv]] 300 mg PO Q12H #8 capsule Primary Care Physician: Maxi Steele [Primary Care Provider] - Please follow up with your Primary Care Physician in: 3-5 days Disposition: Care Home facility Minutes spent on discharge:: 35 Patient Condition:: Stable Medical Necessity - Tobacco Use Smoking Status: Current every day smoker Tobacco Use: Cigarettes Meaningful Use Info Meaningful Use Diagnoses (Choose all that apply): VTE - VTE Anticoag overlap given w/in hospital stay or rx'd at dc?: No Pt receive overlap for 5 days?: No Reason overlap not ordered, prescribed, or given for 5 days: Treatment Not Indicated Code Visit Inpatient E&M: 82685 Disch Hosp
== END 2018-10-25 15:17 | disposition intermediate care facility (04) | DRG 175 ==
LOC: ED 12:10 → PCU 14:02
PROVIDERS: Admitting Provider Internal Medicine; Emergency Provider Emergency Medicine; Family Provider Family Medicine; PCP Family Medicine; Referring Provider Internal Medicine; Visit Provider Family Medicine
DX: I26.99 Other pulmonary embolism without acute cor pulmonale (principal); J15.4 Pneumonia due to other streptococci; R09.02 Hypoxemia; I48.91 Unspecified atrial fibrillation; F17.210 Nicotine dependence, cigarettes, uncomplicated; J44.9 Chronic obstructive pulmonary disease, unspecified; F25.9 Schizoaffective disorder, unspecified; F10.10 Alcohol abuse, uncomplicated; B18.2 Chronic viral hepatitis C; I10 Essential (primary) hypertension; G31.09 Other frontotemporal neurocognitive disorder; F02.80 Dementia in other diseases classified elsewhere, unspecified severity, without behavioral disturbance, psychotic disturbance, mood disturbance, and anxiety
CPT/HCPCS: 36415; 36600; 71045; 71275; 80048; 80053; 80061; 81001; 82803; 83605; 83735; 84443; 84484; 85025; 85379; 85610; 85730; 87040; 87449; 87633; 92526; 93005; 93306; 93970; 94640; 97162; 97165; 97530; 97802; 99285; 99406; J7030; J7040; Q9967; A4216

== ENCOUNTER 2018-11-09 11:16 | Inpatient (IN) | payer MEDICARE, MEDICAID, SELFPAY ==
[2018-10-22 14:55] VITALS: BMI 23.2
[2018-11-09] VITALS (37 sets, daily range): BP systolic 101–129; BP diastolic 67–110; PULSE 44–136; RESP 17–32; TEMP 36.6–37.1; O2SAT 92–100; BMI 22.3; BMI 21.4
--- NOTE | 2018-11-09 11:23 | EKG12_ITS ---
Test Reason : IRREG Blood Pressure : / mmHG Vent. Rate : 109 BPM Atrial Rate : 286 BPM P-R Int : 000 ms QRS Dur : 080 ms QT Int : 352 ms P-R-T Axes : 000 -01 -48 degrees QTc Int : 474 ms Atrial flutter with variable A-V block with premature ventricular or aberrantly conducted complexes Nonspecific T wave abnormality Abnormal ECG Confirmed by HENNY SLADE, SHEN ([id number]), food editor HILARY LUONG ([id number]) on 11/12/2018 4:49:54 PM Referred By: NAYANA Confirmed By:SHEN INMAN MD
--- NOTE | 2018-11-09 11:23 | RAD_ITS ---
STUDY: X-RAY CHEST REASON FOR EXAM: Male, 62 years old. Shortness of breath. TECHNIQUE: Single AP portable view of the chest. COMPARISON: 22 October 2018 FINDINGS: Chronic basilar interstitial markings with areas of likely early patchy airspace disease overlying the left lower lung. There is no demonstrated pleural abnormality. Normal size heart. Normal mediastinum and jan. Normal visualized pulmonary arteries. Normal visualized aortic arch and descending thoracic aorta. Normal visualized thoracic spine. Normal visualized ribs, clavicles, and shoulders. There is no demonstrated abnormality of the visualized soft tissue structures of the upper abdomen. RAD/Chest 1 View (Portable) IMPRESSION: Compounding chronic basilar interstitial markings with likely early left lower lung developing airspace disease/pneumonia. Electronically Signed: Paul Wray DO at 11:43 EST , Service support ,
[2018-11-09] MEDS: Albuterol 2.5 MG/3 ML VIAL.NEB. INHALATION ×2 (11:42→14:25)
[2018-11-09] MEDS: Ipratropium/Albuterol Sulfate 3 ML AMPUL.NEB INHALATION ×2 (11:42→20:03)
--- NOTE | 2018-11-09 11:45 | CPS ---
PERIODS OF APNEA NOTED AROUND 20 SECONDS LONG. [place] RESPIRATORY PATTERN NOTED ON MONITOR ALSO.
[2018-11-09 12:17] LABS: Absolute Lymphocyte Count 1.03 X10^3/ul (0.83-4.51); Absolute Neutrophil Count 4.4 X10^3/uL (2.0-7.7); Basophil# 0.05 X10^3/uL; Basophil% 0.8 % (0-1); Eosinophil# 0.11 X10^3/uL; Eosinophils% 1.8 % (0-5); Hematocrit 46.7 % (40-54); Hemoglobin 14.8 g/dl (13.0-16.5); Lymphocyte # 1.03 X10^3/ul (4.0); Lymphocyte % 16.9 % (19-41); Mean Corp Hgb Conc 31.7 g/gl (32-36); Mean Corpuscular Hgb 31.2 pg (27.0-32.0); Mean Corpuscular Volume 98.5 fL (80-94); Mean Platelet Vol. 11.1 fl (6.2-12.0); Monocyte# 0.52 X10^3/uL; Monocyte% 8.5 % (0-10); Neutrophil # 4.38 X10^3/uL (2.7-7.7); Neutrophil % 71.8 % (47-70); Platelet Count 203 K/mm3 (150-450); RBC Distribution Width CV 14.9 % (11.6-14.6); RBC Distribution Width SD 53.7 fl (35.1-43.9); Red Blood Count 4.74 M/mm3 (4.6-6.2); White Blood Count 6.1 K/mm3 (4.4-11.0)
[2018-11-09 12:18] LABS: POSITIVE COUNT NO; POSITIVE DIFFERENTIAL NO; POSITIVE MORPHOLOGY NO
[2018-11-09] MEDS: 0.9% Normal Saline 1,000 ML 150 ML IV (12:22)
--- NOTE | 2018-11-09 12:26 | ED.RN ---
VERBAL CONSENT FOR TREATMENT OBTAINED VIA TELEPHONE BY LEGAL GUARDIAN. CONSENT VERIFIED BY JOSE LUIS MUNSON.
[2018-11-09 12:29] LABS: Partial Thromboplast Time 31.2 Seconds (24.1-36.2)
[2018-11-09 12:31] LABS: ALB/GLOB Ratio 0.9 RATIO (0.9-2.4); AST(SGOT) 24 U/L (15-37); Alanine Aminotransfer ALT/SGPT 43 U/L (16-61); Albumin, Serum 3.2 g/dL (3.2-5.0); Alkaline Phosphatase 130 U/L (45-117); Anion Gap 5 (5-15); BUN 12 mg/dL (7-18); BUN/Creat Ratio 17.2 RATIO (10-20); Calcium,Total 8.7 mg/dL (8.5-10.1); Chloride 111 mmol/L (98-107); EST Glomerular Filtration Rate 121 mL/min (>60); Est Glom Filt Rate - Afr Amer 147 mL/min (>60); Estimated Creatinine Clearance 127.11 ml/min; Globulin 3.6 g/dL (2.2-4.2); Glucose 105 mg/dL (74-106); Potassium 3.9 mmol/L (3.5-5.1); Protein, Total 6.8 g/dL (6.4-8.2); Sodium Level 143 mmol/L (136-145)
[2018-11-09 12:35] LABS: International Normalized Ratio 1.3; Prothrombin Time (Protime)PT. 15.8 SECONDS (11.7-14.9)
[2018-11-09 12:38] LABS: Lactic Acid 1.7 mmol/L (0.4-2.0)
[2018-11-09 12:41] LABS: Base Excess -1 mmol/L (-2 to +2); Bicarbonate 23.2 mmol/L (22-26); Blood Gas Specimen Type ART; O2 Delivery Device Nasal Can; PO2 71 mmHG (75-100); SITE R Radial; SO2 95 % (95-99); Time Given 1230; Total Carbon Dioxide 24 mmol/L; pH 7.46 (7.35-7.45)
--- NOTE | 2018-11-09 13:17 | CPS ---
ABG RESULTS GIVEN TO DR. KRAUS BY NIEVES LUIS.
--- NOTE | 2018-11-09 13:20 | CPS ---
ABG RESULTS GIVEN TO BY NIEVES LUIS.
[2018-11-09] MEDS: MethylPREDNISolone 125 MG/2 ML Vial IV (13:29)
[2018-11-09 13:36] LABS: Bacteria 0 SEEN /hpf (None Seen); Mucous, Urine 0 SEEN /hpf (<or=2+); Red Blood Cells-Urine 0 SEEN /hpf (0-5); Squamous Epithelial Cells - UA 0 SEEN /hpf (0-5); White Blood Cells 0 SEEN /hpf (0-5)
[2018-11-09 13:44] LABS: Color, Urine Yellow (Yellow); Glucose, Dipstick Normal (Normal); Ketone-Dipstick Negative (Negative); Leukocyte Esterase-Dipstick Negative /ul (Negative); Nitrite-Dipstick Negative (Negative); Occult Blood-Urine Negative /ul (Negative); Protein-Dipstick 100 mg/dl (Negative); Specific Gravity, Urine 1.015 (1.002-1.030); Urine Bilirubin Dipstick Negative (Negative); Urine Clarity Clear (Clear); Urine Urobilinogen Normal (Normal)
--- NOTE | 2018-11-09 14:23 | ED.VISSUMM ---
- ER Visit Summary Date of Service: 11/09/18 Chief Complaint: Shortness of breath History of Present Illness: The patient is a 62 M who [facility]. He was recently admitted to begin the month with strep pneumo pneumonia and was found to have atrial fibrillation with RVR and pulmonary embolism. He is on metoprolol as well as Xarelto. He is noted today to be tachypneic tachycardic and have altered mental status. It should be noted the patient has dementia as well as schizoaffective disorder and is normally not orientated. Physical Examination: Afebrile vital signs showed tachypnea tachycardia pulse ox 91% on room air at rest. Gen: Well-nourished well-developed disheveled Head: Normocephalic atraumatic Eyes: Perrl EOMI ENT: TMs clear no rhinorrhea moist mucous membranes Neck: Supple no lymphadenopathy no JVD nontender CVS: There are tachycardic rhythm no murmurs normal S1-S2 Respiratory: Patient is tachypneic with inspiratory and expiratory wheezing chest nontender Abdomen: Soft nontender nondistended normal bowel sounds no masses Back: Nontender Extremity: Nontender no edema Skin: Normal color no rash Neuro: alertCN II-XII intact normal strength sensation reflexes gait cerebellar Psych: Blunted affect Test Results: White count is normal. Troponin is negative. EKG shows atrial flutter at a rate of 109. Chest x-ray read by myself shows no obvious consolidation. Or effusion. Emergency Department Course and Treatment: Patient received breathing treatments and Solu-Medrol. Repeat evaluation his lung sounds are improved though he still has expiratory wheezing. He is 87% on room air with ambulation. Plan is admission to the hospital. I believe he has a COPD exacerbation. Impression: 1. COPD exacerbation 2. Hypoxemia This note was generated with [employer] dictation software. It may contain incorrect words, spelling, and punctuation that were not noted in review of the chart prior to signing ED Disposition - Plan for ED Patient: Disposition: Acute [facility]
--- NOTE | 2018-11-09 14:32 | CPS ---
PERIODS OF APNEA NOTED, 10-20 SECONDS, IN THE PATTERN OF [place]-LAW.
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
[2018-11-09] MEDS: 0.9% Normal Saline 1,000 ML 75 ML IV (16:01)
[2018-11-09] MEDS: Metoprolol Tartrate 100 MG Tablet PO (16:01)
--- NOTE | 2018-11-09 22:00 | EKG12_ITS ---
Test Reason : NSR Blood Pressure : / mmHG Vent. Rate : 047 BPM Atrial Rate : 047 BPM P-R Int : 178 ms QRS Dur : 084 ms QT Int : 460 ms P-R-T Axes : 053 010 057 degrees QTc Int : 407 ms Sinus bradycardia Nonspecific T wave abnormality Poor R wave progression Abnormal ECG Confirmed by LARRY SLADE, MAYNOR ([id number]), communications editor HILARY LUONG ([id number]) on 11/13/2018 10:53:58 AM Referred By: DR SHANKS Confirmed By:MAYNOR JUAREZ MD
[2018-11-09] MEDS: traZODone 50 MG Tablet PO (22:16)
[2018-11-09] MEDS: OLANZapine 2.5 MG Tablet PO (22:16)
[2018-11-09] MEDS: APIXABAN 5 MG TABLET PO (22:16)
[2018-11-09] MEDS: Lithium Carbonate 300mg Capsule 300 MG PO (22:16)
[2018-11-09] MEDS: LORazepam 1 MG Tablet 2 MG PO (22:16)
[2018-11-09] MEDS: Haloperidol Lactate 10 MG/5 ML UDC 2 MG PO (22:16)
[2018-11-10] VITALS (18 sets, daily range): BP systolic 109–139; BP diastolic 67–90; PULSE 52–68; RESP 16–20; TEMP 36.4–37.2; O2SAT 93–97
[2018-11-10] MEDS: 0.9% NaCl Peripheral Flush Adult/Peds IV ×4 (00:13→11:22)
[2018-11-10 01:54] LABS: Absolute Lymphocyte Count 0.62 X10^3/ul (0.83-4.51); Absolute Neutrophil Count 6.7 X10^3/uL (2.0-7.7); Basophil# 0.01 X10^3/uL; Basophil% 0.1 % (0-1); Hematocrit 38.5 % (40-54); Hemoglobin 12.5 g/dl (13.0-16.5); Lymphocyte # 0.62 X10^3/ul (4.0); Lymphocyte % 8.3 % (19-41); Mean Corp Hgb Conc 32.5 g/gl (32-36); Mean Corpuscular Hgb 31.2 pg (27.0-32.0); Mean Platelet Vol. 11.2 fl (6.2-12.0); Monocyte# 0.16 X10^3/uL; Monocyte% 2.1 % (0-10); Neutrophil # 6.69 X10^3/uL (2.7-7.7); Neutrophil % 89.5 % (47-70); Platelet Count 190 K/mm3 (150-450); RBC Distribution Width CV 14.6 % (11.6-14.6); RBC Distribution Width SD 51.6 fl (35.1-43.9); Red Blood Count 4.01 M/mm3 (4.6-6.2); White Blood Count 7.5 K/mm3 (4.4-11.0)
[2018-11-10 02:00] LABS: POSITIVE COUNT NO; POSITIVE DIFFERENTIAL NO; POSITIVE MORPHOLOGY NO
[2018-11-10 02:36] LABS: Anion Gap 8 (5-15); BUN 13 mg/dL (7-18); BUN/Creat Ratio 24.5 RATIO (10-20); Calcium,Total 8.2 mg/dL (8.5-10.1); Chloride 105 mmol/L (98-107); Creatinine, Serum 0.53 mg/dL (0.70-1.30); EST Glomerular Filtration Rate 166 mL/min (>60); Est Glom Filt Rate - Afr Amer 201 mL/min (>60); Estimated Creatinine Clearance 161.09 ml/min; Glucose 131 mg/dL (74-106); Magnesium 1.9 mg/dL (1.6-2.6); Potassium 3.9 mmol/L (3.5-5.1); Sodium Level 133 mmol/L (136-145)
[2018-11-10] MEDS: OLANZapine 2.5 MG Tablet PO ×3 (05:46→21:18)
[2018-11-10] MEDS: LORazepam 1 MG Tablet 2 MG PO ×3 (05:46→21:19)
[2018-11-10] MEDS: Lithium Carbonate 300mg Capsule 300 MG PO ×3 (05:46→21:19)
[2018-11-10] MEDS: Haloperidol Lactate 10 MG/5 ML UDC 2 MG PO ×3 (05:46→21:18)
[2018-11-10] MEDS: 0.9% Normal Saline 1,000 ML 75 ML IV (06:09)
[2018-11-10] MEDS: Ipratropium/Albuterol Sulfate 3 ML AMPUL.NEB INHALATION ×4 (07:30→20:07)
--- NOTE | 2018-11-10 08:19 | PCM.PROGNOTE ---
Subjective: Chief complaint: Follow-up after admission for atrial flutter/fibrillation with RVR, probable mild acute COPD exacerbation and recent pneumonia. Patient seen and examined. No acute events overnight. This morning, is feeling better, shortness of breath improved, still complaining of cough with no sputum. Denied chest pain, palpitation, dizziness or lightheadedness. Now, he is in sinus bradycardia, afebrile, blood pressure stable, pulse ox is 97% on 2 L. - Physical Exam General: Alert, Cooperative, No apparent distress HEENT: Atraumatic, PERRLA, EOMI, Normocephalic Oral: Moist Mucosa, No Gingival or Mucosal Lesions/ Ulcerations Neck: Supple, No JVD, Negative Carotid Bruits, Trachea Midline, Thyroid Normal Size and Texture Lungs: No wheeze, No rales, Diminished, Rhonchi Cardiovascular: Regular rate, Regular Rhythm, Normal S1, Normal S2, PMI Normal, Bradycardic Abdomen: Bowel Sounds Present, Soft, Non Tender, Non-Distended, No Hepato-splenomegaly Extremities: No clubbing, No cyanosis, No edema Skin: No rashes, No breakdown Lymphatic: No Cervical, Supraclavicular, or Inguinal Adenopathy Neurological: Cranial nerves II-XII grossly intact, Motor Exam 5/5 strength throughout Psych/Mental Status: Normal Affect, Appropriate Vital Signs Temp Pulse Resp BP Pulse Ox 97.5 F L 57 L 20 H 139/90 H 97 11/10/18 04:25 11/10/18 07:04 11/10/18 04:25 11/10/18 04:25 11/10/18 04:25 Oxygen Flow Rate (L/min) 2 Oxygen Delivery Method Room Air Weight: 176 lb Body Mass Index (BMI) 21.4 Intake and Output for Last 24 Hours 11/08/18 11/09/18 11/10/18 23:59 23:59 23:59 Intake Total 240 / 240 4310 / 4310 Output Total 700 / 700 Balance 240 / 240 3610 / 3610 Laboratory Tests Past 24 Hrs 11/09/18 11/09/18 11/09/18 11:45 11:45 11:45 WBC 6.1 RBC 4.74 Hgb 14.8 Hct 46.7 MCV 98.5 H MCH 31.2 MCHC 31.7 L RDW 14.9 H RDW Differential 53.7 H Plt Count 203 MPV 11.1 Immature Gran % (Auto) 0.200 Neut % (Auto) 71.8 H Lymph % (Auto) 16.9 L [place] % (Auto) 8.5 Eos % (Auto) 1.8 Baso % (Auto) 0.8 Absolute Neuts (auto) 4.4 Absolute Lymphs (auto) 1.03 Total Counted Not Reportable PT 15.8 H INR 1.3 APTT 31.2 Specimen Type Sample Site pH Bicarbonate Actual POC Total CO2 Base Excess O2 Saturation ABG pCO2 ABG pO2 Braulio Test O2 Delivery Device Liter Flow Blood Gas Notified Whom Blood Gas Notified Time Sodium 143 Potassium 3.9 Chloride 111 H Carbon Dioxide 27.0 Anion Gap 5 BUN 12 Creatinine 0.70 Estim Creat Clear Calc 127.11 Est GFR (MDRD) Af Amer 147 Est GFR (MDRD) Non-Af 121 BUN/Creatinine Ratio 17.2 Glucose 105 Lactic Acid Calcium 8.7 Magnesium Total Bilirubin 0.50 AST 24 ALT 43 Alkaline Phosphatase 130 H Troponin I < 0.015 B-Natriuretic Peptide Total Protein 6.8 Albumin 3.2 Globulin 3.6 Albumin/Globulin Ratio 0.9 Urine Color Urine Clarity Urine pH Ur Specific Termo Urine Protein Urine Glucose (UA) Urine Ketones Urine Occult Blood Urine Nitrite Urine Bilirubin Urine Urobilinogen Ur Leukocyte Esterase Urine RBC Urine WBC Ur Squamous Epith Cells Urine Bacteria Urine Mucus 11/09/18 11/09/18 11/09/18 11:45 12:36 13:05 WBC RBC Hgb Hct MCV MCH MCHC RDW RDW Differential Plt Count MPV Immature Gran % (Auto) Neut % (Auto) Lymph % (Auto) [place] % (Auto) Eos % (Auto) Baso % (Auto) Absolute Neuts (auto) Absolute Lymphs (auto) Total Counted PT INR APTT Specimen Type ART Sample Site R Radial pH 7.46 H Bicarbonate Actual 23.2 POC Total CO2 24 Base Excess -1 O2 Saturation 95 ABG pCO2 33.0 L ABG pO2 71 L Braulio Test NA O2 Delivery Device Nasal Can Liter Flow 1.0 Blood Gas Notified Whom ED Blood Gas Notified Time 1230 Sodium Potassium Chloride Carbon Dioxide Anion Gap BUN Creatinine Estim Creat Clear Calc Est GFR (MDRD) Af Amer Est GFR (MDRD) Non-Af BUN/Creatinine Ratio Glucose Lactic Acid 1.7 Calcium Magnesium Total Bilirubin AST ALT Alkaline Phosphatase Troponin I B-Natriuretic Peptide Total Protein Albumin Globulin Albumin/Globulin Ratio Urine Color Yellow Urine Clarity Clear Urine pH 8.0 Ur Specific [place] 1.015 Urine Protein 100 H Urine Glucose (UA) Normal Urine Ketones Negative Urine Occult Blood Negative Urine Nitrite Negative Urine Bilirubin Negative Urine Urobilinogen Normal Ur Leukocyte Esterase Negative Urine RBC 0 SEEN Urine WBC 0 SEEN Ur Squamous Epith Cells 0 SEEN Urine Bacteria 0 SEEN Urine Mucus 0 SEEN 11/10/18 11/10/18 11/10/18 01:45 01:45 01:45 WBC 7.5 RBC 4.01 L Hgb 12.5 L Hct 38.5 L MCV 96.0 H MCH 31.2 MCHC 32.5 RDW 14.6 RDW Differential 51.6 H Plt Count 190 MPV 11.2 Immature Gran % (Auto) 0.000 Neut % (Auto) 89.5 H Lymph % (Auto) 8.3 L [place] % (Auto) 2.1 Eos % (Auto) 0.0 Baso % (Auto) 0.1 Absolute Neuts (auto) 6.7 Absolute Lymphs (auto) 0.62 L Total Counted Not Reportable PT INR APTT Specimen Type Sample Site pH Bicarbonate Actual POC Total CO2 Base Excess O2 Saturation ABG pCO2 ABG pO2 Braulio Test O2 Delivery Device Liter Flow Blood Gas Notified Whom Blood Gas Notified Time Sodium 133 L Potassium 3.9 Chloride 105 Carbon Dioxide 20.0 L Anion Gap 8 BUN 13 Creatinine 0.53 L Estim Creat Clear Calc 161.09 Est GFR (MDRD) Af Amer 201 Est GFR (MDRD) Non-Af 166 BUN/Creatinine Ratio 24.5 H Glucose 131 H Lactic Acid Calcium 8.2 L Magnesium 1.9 Total Bilirubin AST ALT Alkaline Phosphatase Troponin I B-Natriuretic Peptide Pending Total Protein Albumin Globulin Albumin/Globulin Ratio Urine Color Urine Clarity Urine pH Ur Specific Termo Urine Protein Urine Glucose (UA) Urine Ketones Urine Occult Blood Urine Nitrite Urine Bilirubin Urine Urobilinogen Ur Leukocyte Esterase Urine RBC Urine WBC Ur Squamous Epith Cells Urine Bacteria Urine Mucus Clinical Impression(s) from Imaging Studies Chest X-Ray 11/09/18 11:23 IMPRESSION: Compounding chronic basilar interstitial markings with likely early left lower lung developing airspace disease/pneumonia. Electronically Signed: Paul Wray DO at 11:43 EST , Service support , Medical Necessity - Tobacco Use Smoking Status: Current every day smoker Tobacco Use: Cigarettes Assessment/Plan All Active Problems Atrial fibrillation with RVR (Acute) COPD (chronic obstructive pulmonary disease) (Acute) This is a 62 years old male patient presented to the medicine because of shortness of breath, found to have mild acute COPD exacerbation and A. fib with RVR, had a recent history of committee acquired pneumonia, new onset A. fib with RVR and and pulmonary embolism. At this time, I think patient also may have some element of mild acute systolic CHF. #1 mild acute COPD exacerbation/hypoxia: Chest x-ray reviewed, revealed bilateral basilar heterogenous opacities more on the right base which are corresponding to the pneumonia that he had 2 weeks ago. Superimposed pulmonary vascular congestion cannot be ruled out. Patient is on DuoNeb and IV steroids. Today, he feels better, less short of breath, he has been off oxygen. Still complaining of cough. At this time, I doubt active pneumonia, patient completed cefdinir after discharge 2 weeks ago. He has been afebrile, no leukocytosis. Blood and urine cultures are pending. Plan: DC IV steroids, start oral prednisone, albuterol as needed, respiratory panel for viruses, sputum culture, incentive spirometer, chest physiotherapy, PT OT evaluation and treatment. #2 atrial flutter/fib with RVR: Patient was on IV Cardizem drip, now in sinus bradycardia. He was diagnosed for first time with new onset A. fib with RVR 2 weeks ago, was discharged on metoprolol and Eliquis. 2D echocardiogram that was done on October 22, 2018 revealed ejection fraction of 50%, mild global hypokinesis of the left ventricle and pulmonary artery pressure of 40. Patient has been off IV Cardizem drip, now in sinus bradycardia. Plan: Change metoprolol back to 50 mg p.o. twice daily, continue Eliquis. #3 probable mild acute systolic CHF: This is based on symptoms of worsening shortness of breath, elevated BNP, chest x-ray findings and echocardiogram with ejection fraction 50% and global hypokinesis of the left ventricle. Plan: We will give the 1 dose of IV Lasix, patient will need oral Lasix and will repeat chest x-ray tomorrow morning. #4 recent history of community-acquired pneumonia: Completed course of cefdinir after discharge from the hospital. At this time, I doubt active or acute pneumonia. Chest x-ray findings are corresponded to the CTA findings that was done. Admission. Patient is afebrile, no leukocytosis. Blood and urine cultures are pending. Plan as above. #5 recent history of pulmonary embolism: Continue Eliquis. #6 hypertension: Blood pressure stable, continue metoprolol. #7 COPD: Plan as above, continue DuoNeb, start albuterol, DC IV steroids, start oral prednisone. #8 schizoaffective disorders: Continue Celexa, Zyprexa, Ativan, lithium and haloperidol #9 chronic alcohol abuse/nicotine abuse: Stable, no acute issues. #10 DVT prophylaxis: Continue Eliquis. This note was generated with [employer] dictation software. It may contain incorrect words, spelling, and punctuation that were not noted in checking the note before signing. Code Visit Inpatient E&M: 65918 Subs Hosp L2
[2018-11-10 08:43] LABS: BNP,B-Type NATRIURETIC PEPTIDE 631.5 pg/mL (0-100)
[2018-11-10] MEDS: Citalopram 20 MG Tablet PO (09:01)
[2018-11-10] MEDS: APIXABAN 5 MG TABLET PO ×2 (09:01→21:20)
[2018-11-10] MEDS: Aspirin 81 MG TAB.CHEW PO (09:01)
[2018-11-10] MEDS: Fludrocortisone Acetate 0.1 MG Tablet PO (09:02)
[2018-11-10] MEDS: predniSONE 20 MG Tablet 40 MG PO (09:05)
[2018-11-10] MEDS: Metoprolol Tartrate 50 MG Tablet PO ×2 (09:05→21:21)
[2018-11-10] MEDS: Furosemide 40 MG/4 ML Vial IV (11:22)
[2018-11-10] MEDS: traZODone 50 MG Tablet PO (21:19)
[2018-11-11] VITALS (14 sets, daily range): BP systolic 104–137; BP diastolic 43–78; PULSE 48–70; RESP 14–18; TEMP 36–36.6; O2SAT 92–94
[2018-11-11] MEDS: OLANZapine 2.5 MG Tablet PO ×2 (05:06→17:07)
[2018-11-11] MEDS: LORazepam 1 MG Tablet 2 MG PO ×2 (05:06→17:08)
[2018-11-11] MEDS: Haloperidol Lactate 10 MG/5 ML UDC 2 MG PO ×2 (05:06→17:08)
[2018-11-11] MEDS: Lithium Carbonate 300mg Capsule 300 MG PO (05:06)
[2018-11-11] MEDS: Ipratropium/Albuterol Sulfate 3 ML AMPUL.NEB INHALATION ×3 (07:31→22:05)
[2018-11-11] MEDS: Furosemide 40 MG Tablet PO (11:06)
[2018-11-11] MEDS: predniSONE 20 MG Tablet 40 MG PO (11:06)
[2018-11-11] MEDS: Citalopram 20 MG Tablet PO (11:06)
[2018-11-11] MEDS: Aspirin 81 MG TAB.CHEW PO (11:06)
[2018-11-11] MEDS: Fludrocortisone Acetate 0.1 MG Tablet PO (11:06)
[2018-11-11] MEDS: APIXABAN 5 MG TABLET PO (11:07)
--- NOTE | 2018-11-11 12:00 | RAD_ITS ---
STUDY: X-RAY CHEST REASON FOR EXAM: Male, 62 years old. Dyspnea/shortness of breath. TECHNIQUE: Single AP portable view of the chest. COMPARISON: Comparison is made with prior study dated November 09, 2018. FINDINGS: EKG electrodes are seen. Since prior study, there has been progressive infiltrates in both lungs worse in the left lower lobe. This may represent superimposed pneumonias. Follow-up is recommended. Hyperinflation. There is borderline cardiomegaly. Normal mediastinum and jan. Normal visualized pulmonary arteries. There is atherosclerotic tortuosity of the aortic arch and descending thoracic aorta. There are diffuse degenerative changes of the visualized thoracic spine. Normal visualized ribs, clavicles, and shoulders. There is no demonstrated abnormality of the visualized soft tissue structures of the upper abdomen. RAD/Chest 1 View (Portable) IMPRESSION: Progressive bibasilar infiltrates worse on the left side. Follow-up is recommended. Electronically Signed: Harvinder Garcia MD at 15:42 EST , Service support ,
--- NOTE | 2018-11-11 14:36 | CASEMGMT ---
Updates faxed to [facility]. Melani WASHINGTON PUSHER OPERATOR
[2018-11-11] MEDS: Lithium Carbonate 150 MG Capsule PO (17:10)
--- NOTE | 2018-11-11 17:44 | PCM.PN.HOSP ---
Subjective: The patient was seen and examined in the morning. Patient is bradycardic, heart rate in the low 50s. Patient had new onset A. fib. Patient also on lithium for schizoaffective disorder. Vitals/I&O's: Vital Signs Temp Pulse Resp BP Pulse Ox 97.8 F 57 L 17 130/72 H 94 11/11/18 17:06 11/11/18 17:06 11/11/18 17:06 11/11/18 17:06 11/11/18 17:06 Oxygen Flow Rate (L/min) 2 Oxygen Delivery Method Room Air Weight: 176 lb Body Mass Index (BMI) 21.4 Intake and Output for Last 24 Hours 11/09/18 11/10/18 11/11/18 23:59 23:59 23:59 Intake Total 240 / 240 4790 / 4790 480 / 480 Output Total 700 / 700 Balance 240 / 240 4090 / 4090 480 / 480 General: Alert, Oriented x3, Cooperative HEENT: Atraumatic, PERRLA, EOMI, Normocephalic Neck: Supple, No JVD, Negative Carotid Bruits Lungs: No rhonchi, No wheeze, No rales, Diminished Cardiovascular: Normal S1, Normal S2, No murmurs, Bradycardic, Irregular Rate Abdomen: Bowel Sounds Present, Soft, Non Tender, Non-Distended Extremities: Capillary Refill Less than 3 Seconds, Edema Skin: No rashes, No breakdown Musculoskeletal: No Tenderness to Palpation of Joints or Extremities, Arthritic Changes Neurological: Cranial nerves II-XII grossly intact Psych/Mental Status: Normal Affect, Appropriate Microbiology Past 72 Hours 11/09/18 12:00 Blood Culture (Wb) - Right Forearm Blood Culture - Preliminary No growth in 48 hours. 11/09/18 11:45 Blood Culture (Wb) - Left Forearm Blood Culture - Preliminary No growth in 48 hours. 11/09/18 13:05 Urine Catheter - Catheter Urine Culture - Final Culture exhibits no growth. 11/10/18 11:09 Mucosa - Nasopharyngeal Respiratory Panel (PCR) - Final Adenovirus Laboratory Results 11/11/18 10:10: [place] 0.90 Current Medications Albuterol Sulfate (Ventolin Aerosols) 2.5 mg INHALATION Q2H PRN PRN PRN Reason: Shortness of breath, wheezing Albuterol/Ipratropium (Duoneb) 3 ml INHALATION Q4HWA.RT [facility] Last Admin: 11/11/18 15:28 Dose: 3 ml Apixaban (Eliquis) 5 mg PO BID [facility] Last Admin: 11/11/18 11:07 Dose: 5 mg Aspirin (Aspirin, Baby) 81 mg PO DAILY@0800 [facility] Last Admin: 11/11/18 11:06 Dose: 81 mg Citalopram Hydrobromide (Celexa) 20 mg PO DAILY [facility] Last Admin: 11/11/18 11:06 Dose: 20 mg Fludrocortisone Acetate (Florinef) 0.1 mg PO DAILYCM [facility] Last Admin: 11/11/18 11:06 Dose: 0.1 mg Furosemide (Lasix) 40 mg PO DAILY [facility] Last Admin: 11/11/18 11:06 Dose: 40 mg Haloperidol Lactate (Haloperidol Lactate) 2 mg PO TID [facility] Last Admin: 11/11/18 17:08 Dose: 2 mg [place] Carbonate ([place] Carbonate) 150 mg PO TID [facility] Last Admin: 11/11/18 17:10 Dose: 150 mg Lorazepam (Ativan) 2 mg PO TID [facility] Last Admin: 11/11/18 17:08 Dose: 2 mg Magnesium Hydroxide (Milk Of Magnesia) 30 ml PO DAILY PRN PRN Reason: Constipation Metoprolol Tartrate (Lopressor (Beta Melody)) 25 mg PO BID [facility] Last Admin: 11/11/18 11:11 Dose: Not Given Nicotine (Nicoderm Cq (Pbkc)) 14 mg TRANSDERM. DAILY [facility] Last Admin: 11/11/18 11:07 Dose: 14 mg Olanzapine (Zyprexa) 2.5 mg PO TID [facility] Last Admin: 11/11/18 17:07 Dose: 2.5 mg Prednisone () 40 mg PO DAILY@0800 [facility] Stop: 11/14/18 08:01 Last Admin: 11/11/18 11:06 Dose: 40 mg Sodium Chloride () 5 - 15 ml IV UD PRN PRN Reason: SALINE FLUSH Last Admin: 11/10/18 11:22 Dose: 10 ml Trazodone HCl (Desyrel) 50 mg PO QHS [facility] Last Admin: 11/10/18 21:19 Dose: 50 mg Medical Necessity - Tobacco Use Smoking Status: Current every day smoker Tobacco Use: Cigarettes Assessment/Plan All Active Problems Atrial fibrillation with RVR (Acute) COPD (chronic obstructive pulmonary disease) (Acute) This is a 62 years old male patient presented to the medicine because of shortness of breath, found to have mild acute COPD exacerbation and A. fib with RVR, had a recent history of community acquired pneumonia, new onset A. fib with RVR and and pulmonary embolism. At this time, I think patient also may have some element of mild acute systolic CHF. #1 mild acute COPD exacerbation/hypoxia: Chest x-ray reviewed, revealed bilateral basilar heterogenous opacities more on the right base which are corresponding to the pneumonia that he had 2 weeks ago. Patient might have viral pneumonia secondary to adenovirus. Chest x-ray reported as progressive infiltrates in both lungs, worse on left lower lobe. Patient is on DuoNeb and IV steroids. At this time, I doubt active pneumonia, patient completed cefdinir after discharge 2 weeks ago. He has been afebrile for more than 48 hours; off antibiotics, no leukocytosis. Blood and urine cultures are pending. Patient is on oral prednisone after discontinuation of IV steroid. Respiratory panel shows adenovirus. Continue incentive spirometry, chest physiotherapy, bronchodilator. Repeat chest x-ray PA and lateral ordered. #2 atrial flutter/fib with RVR: Patient was on IV Cardizem drip, now in sinus bradycardia. He was diagnosed for first time with new onset A. fib with RVR 2 weeks ago, was discharged on metoprolol and Eliquis. 2D echocardiogram that was done on October 22, 2018 revealed ejection fraction of 50%, mild global hypokinesis of the left ventricle and pulmonary artery pressure of 40. Patient has been off IV Cardizem drip, now in sinus bradycardia. Metoprolol decreased to 25 mg twice daily. [place] is 0.9, within normal limit. [place] also causes bradycardia but is in normal range. #3 probable mild acute systolic CHF: This is based on symptoms of worsening shortness of breath, elevated BNP, chest x-ray findings and echocardiogram with ejection fraction 50% and global hypokinesis of the left ventricle. BNP is elevated 631. Continue Lasix 40 mg IV daily. #4 recent history of community-acquired pneumonia, most probably viral pneumonia, adenovirus: Completed course of cefdinir after discharge from the hospital. At this time, I doubt active or acute pneumonia. Chest x-ray findings are corresponded to the CTA findings that was done. Admission. Patient is afebrile, no leukocytosis. Blood cultures negative for more than 48 hours. Urine culture is negative. Respiratory panel is positive for adenovirus #5 recent history of pulmonary embolism: Continue Eliquis. #6 hypertension: Blood pressure stable, continue metoprolol. #7 COPD: Plan as above, continue DuoNeb, start albuterol, DC IV steroids, start oral prednisone. #8 schizoaffective disorders: Continue Celexa, Zyprexa, Ativan, lithium and haloperidol #9 chronic alcohol abuse/nicotine abuse: Stable, no acute issues. #10 DVT prophylaxis: Continue Eliquis. Code Visit Inpatient E&M: 25893 Subs Hosp L3
--- NOTE | 2018-11-11 17:55 | PN_ITS ---
Subjective: The patient was seen and examined in the morning. Patient is bradycardic, heart rate in the low 50s. Patient had new onset A. fib. Patient also on lithium for schizoaffective disorder. Vitals/I&O's: Vital Signs Temp Pulse Resp BP Pulse Ox 97.8 F 57 L 17 130/72 H 94 11/11/18 17:06 11/11/18 17:06 11/11/18 17:06 11/11/18 17:06 11/11/18 17:06 Oxygen Flow Rate (L/min) 2 Oxygen Delivery Method Room Air Weight: 176 lb Body Mass Index (BMI) 21.4 Intake and Output for Last 24 Hours 11/09/18 11/10/18 11/11/18 23:59 23:59 23:59 Intake Total 240 / 240 4790 / 4790 480 / 480 Output Total 700 / 700 Balance 240 / 240 4090 / 4090 480 / 480 General: Alert, Oriented x3, Cooperative HEENT: Atraumatic, PERRLA, EOMI, Normocephalic Neck: Supple, No JVD, Negative Carotid Bruits Lungs: No rhonchi, No wheeze, No rales, Diminished Cardiovascular: Normal S1, Normal S2, No murmurs, Bradycardic, Irregular Rate Abdomen: Bowel Sounds Present, Soft, Non Tender, Non-Distended Extremities: Capillary Refill Less than 3 Seconds, Edema Skin: No rashes, No breakdown Musculoskeletal: No Tenderness to Palpation of Joints or Extremities, Arthritic Changes Neurological: Cranial nerves II-XII grossly intact Psych/Mental Status: Normal Affect, Appropriate Microbiology Past 72 Hours 11/09/18 12:00 Blood Culture (Wb) - Right Forearm Blood Culture - Preliminary No growth in 48 hours. 11/09/18 11:45 Blood Culture (Wb) - Left Forearm Blood Culture - Preliminary No growth in 48 hours. 11/09/18 13:05 Urine Catheter - Catheter Urine Culture - Final Culture exhibits no growth. 11/10/18 11:09 Mucosa - Nasopharyngeal Respiratory Panel (PCR) - Final Adenovirus Laboratory Results 11/11/18 10:10: [place] 0.90 Current Medications Albuterol Sulfate (Ventolin Aerosols) 2.5 mg INHALATION Q2H PRN PRN PRN Reason: Shortness of breath, wheezing Albuterol/Ipratropium (Duoneb) 3 ml INHALATION Q4HWA.RT [facility] Last Admin: 11/11/18 15:28 Dose: 3 ml Apixaban (Eliquis) 5 mg PO BID [facility] Last Admin: 11/11/18 11:07 Dose: 5 mg Aspirin (Aspirin, Baby) 81 mg PO DAILY@0800 [facility] Last Admin: 11/11/18 11:06 Dose: 81 mg Citalopram Hydrobromide (Celexa) 20 mg PO DAILY [facility] Last Admin: 11/11/18 11:06 Dose: 20 mg Fludrocortisone Acetate (Florinef) 0.1 mg PO DAILYCM [facility] Last Admin: 11/11/18 11:06 Dose: 0.1 mg Furosemide (Lasix) 40 mg PO DAILY [facility] Last Admin: 11/11/18 11:06 Dose: 40 mg Haloperidol Lactate (Haloperidol Lactate) 2 mg PO TID [facility] Last Admin: 11/11/18 17:08 Dose: 2 mg [place] Carbonate ([place] Carbonate) 150 mg PO TID [facility] Last Admin: 11/11/18 17:10 Dose: 150 mg Lorazepam (Ativan) 2 mg PO TID [facility] Last Admin: 11/11/18 17:08 Dose: 2 mg Magnesium Hydroxide (Milk Of Magnesia) 30 ml PO DAILY PRN PRN Reason: Constipation Metoprolol Tartrate (Lopressor (Beta Melody)) 25 mg PO BID [facility] Last Admin: 11/11/18 11:11 Dose: Not Given Nicotine (Nicoderm Cq (Pbkc)) 14 mg TRANSDERM. DAILY [facility] Last Admin: 11/11/18 11:07 Dose: 14 mg Olanzapine (Zyprexa) 2.5 mg PO TID [facility] Last Admin: 11/11/18 17:07 Dose: 2.5 mg Prednisone () 40 mg PO DAILY@0800 [facility] Stop: 11/14/18 08:01 Last Admin: 11/11/18 11:06 Dose: 40 mg Sodium Chloride () 5 - 15 ml IV UD PRN PRN Reason: SALINE FLUSH Last Admin: 11/10/18 11:22 Dose: 10 ml Trazodone HCl (Desyrel) 50 mg PO QHS [facility] Last Admin: 11/10/18 21:19 Dose: 50 mg Medical Necessity - Tobacco Use Smoking Status: Current every day smoker Tobacco Use: Cigarettes Assessment/Plan All Active Problems Atrial fibrillation with RVR (Acute) COPD (chronic obstructive pulmonary disease) (Acute) This is a 62 years old male patient presented to the medicine because of shortness of breath, found to have mild acute COPD exacerbation and A. fib with RVR, had a recent history of community acquired pneumonia, new onset A. fib with RVR and and pulmonary embolism. At this time, I think patient also may have some element of mild acute systolic CHF. #1 mild acute COPD exacerbation/hypoxia: Chest x-ray reviewed, revealed bilateral basilar heterogenous opacities more on the right base which are corresponding to the pneumonia that he had 2 weeks ago. Patient might have viral pneumonia secondary to adenovirus. Chest x-ray reported as progressive infiltrates in both lungs, worse on left lower lobe. Patient is on DuoNeb and IV steroids. At this time, I doubt active pneumonia, patient completed cefdinir after discharge 2 weeks ago. He has been afebrile for more than 48 hours; off antibiotics, no leukocytosis. Blood and urine cultures are pending. Patient is on oral prednisone after discontinuation of IV steroid. Respiratory panel shows adenovirus. Continue incentive spirometry, chest physiotherapy, bronchodilator. Repeat chest x-ray PA and lateral ordered. #2 atrial flutter/fib with RVR: Patient was on IV Cardizem drip, now in sinus bradycardia. He was diagnosed for first time with new onset A. fib with RVR 2 weeks ago, was discharged on metoprolol and Eliquis. 2D echocardiogram that was done on October 22, 2018 revealed ejection fraction of 50%, mild global hypokinesis of the left ventricle and pulmonary artery pressure of 40. Patient has been off IV Cardizem drip, now in sinus bradycardia. Metoprolol decreased to 25 mg twice daily. [place] is 0.9, within normal limit. [place] also causes bradycardia but is in normal range. #3 probable mild acute systolic CHF: This is based on symptoms of worsening shortness of breath, elevated BNP, chest x-ray findings and echocardiogram with ejection fraction 50% and global hypokinesis of the left ventricle. BNP is elevated 631. Continue Lasix 40 mg IV daily. #4 recent history of community-acquired pneumonia, most probably viral p neumonia, adenovirus: Completed course of cefdinir after discharge from the hospital. At this time, I doubt active or acute pneumonia. Chest x-ray findings are corresponded to the CTA findings that was done. Admission. Patient is afebrile, no leukocytosis. Blood cultures negative for more than 48 hours. Urine culture is negative. Respiratory panel is positive for adenovirus #5 recent history of pulmonary embolism: Continue Eliquis. #6 hypertension: Blood pressure stable, continue metoprolol. #7 COPD: Plan as above, continue DuoNeb, start albuterol, DC IV steroids, start oral prednisone. #8 schizoaffective disorders: Continue Celexa, Zyprexa, Ativan, lithium and haloperidol #9 chronic alcohol abuse/nicotine abuse: Stable, no acute issues. #10 DVT prophylaxis: Continue Eliquis. Code Visit Inpatient E&M: 72422 Subs Hosp L3
[2018-11-12] VITALS (8 sets, daily range): BP systolic 108–139; BP diastolic 55–91; PULSE 52–60; RESP 16–20; TEMP 36.6; O2SAT 92–99
--- NOTE | 2018-11-12 05:55 | RAD_ITS ---
STUDY: X-RAY CHEST REASON FOR EXAM: Male, 62 years old. Dyspnea and shortness of breath. TECHNIQUE: PA and lateral views of the chest. COMPARISON: Comparison is made with prior study dated November 11, 2018. FINDINGS: EKG electrodes are seen. Hyperinflation. Since prior study, there has been improved aeration of both lung bases. Mild residual changes persist at the lung bases. Blunting of both costophrenic angles posteriorly. Normal size heart. Normal mediastinum and jan. Normal visualized pulmonary arteries. Normal visualized aortic arch and descending thoracic aorta. There are degenerative changes of the visualized thoracic spine. Healed right rib fractures. There is no demonstrated abnormality of the visualized soft tissue structures of the upper abdomen. RAD/Chest PA and Lateral IMPRESSION: Improved aeration of both lung bases with mild residual increased markings. Blunting of both costophrenic angles. Healed right rib fractures. Electronically Signed: Harvinder Garcia, at 13:32 EST , Service support ,
[2018-11-12] MEDS: Haloperidol Lactate 10 MG/5 ML UDC 2 MG PO ×2 (06:46→13:12)
[2018-11-12] MEDS: Lithium Carbonate 150 MG Capsule PO ×2 (06:46→13:12)
[2018-11-12] MEDS: OLANZapine 2.5 MG Tablet PO ×2 (06:46→13:13)
[2018-11-12] MEDS: LORazepam 1 MG Tablet 2 MG PO ×2 (06:46→13:12)
[2018-11-12 06:48] LABS: Absolute Lymphocyte Count 1.86 X10^3/ul (0.83-4.51); Absolute Neutrophil Count 5.5 X10^3/uL (2.0-7.7); Basophil# 0.01 X10^3/uL; Basophil% 0.1 % (0-1); Eosinophil# 0.14 X10^3/uL; Eosinophils% 1.7 % (0-5); Hematocrit 40.8 % (40-54); Hemoglobin 13.2 g/dl (13.0-16.5); Lymphocyte # 1.86 X10^3/ul (4.0); Lymphocyte % 22.6 % (19-41); Mean Corp Hgb Conc 32.4 g/gl (32-36); Mean Corpuscular Hgb 31.9 pg (27.0-32.0); Mean Corpuscular Volume 98.6 fL (80-94); Mean Platelet Vol. 12.1 fl (6.2-12.0); Monocyte# 0.69 X10^3/uL; Monocyte% 8.4 % (0-10); Platelet Count 135 K/mm3 (150-450); RBC Distribution Width CV 14.5 % (11.6-14.6); RBC Distribution Width SD 51.2 fl (35.1-43.9); Red Blood Count 4.14 M/mm3 (4.6-6.2); White Blood Count 8.2 K/mm3 (4.4-11.0)
[2018-11-12 06:49] LABS: POSITIVE COUNT NO; POSITIVE DIFFERENTIAL NO; POSITIVE MORPHOLOGY NO
[2018-11-12 07:10] LABS: Anion Gap 6 (5-15); BUN 13 mg/dL (7-18); BUN/Creat Ratio 25.2 RATIO (10-20); Calcium,Total 8.2 mg/dL (8.5-10.1); Chloride 111 mmol/L (98-107); Creatinine, Serum 0.52 mg/dL (0.70-1.30); EST Glomerular Filtration Rate 172 mL/min (>60); Est Glom Filt Rate - Afr Amer 208 mL/min (>60); Estimated Creatinine Clearance 164.18 ml/min; Glucose 81 mg/dL (74-106); Potassium 3.6 mmol/L (3.5-5.1); Sodium Level 144 mmol/L (136-145)
[2018-11-12] MEDS: Ipratropium/Albuterol Sulfate 3 ML AMPUL.NEB INHALATION (07:31)
--- NOTE | 2018-11-12 08:50 | PCM.TXEXTCAR ---
- Diet 11/09/18 15:10 Diet: Cardiac/Low Cholesterol Food consistency:: Regular Liquid Consistency:: Regular/Thin - Routine Orders/Code Status Suppository Type: Dulcolax 10mg Suppository Frequency: Daily PRN Routine Lab Work: CBC, BMP - on 11/19/18, - - chest xay PA and lateral in 3-4 weeks - Therapies Weight Bearing: Weight bearing as tolerated Physical Therapy: Eval and Treat Occupational Therapy: Eval and Treat - Allergies/Procedures Done in Hospital Allergies/Adverse Reactions: Allergies Penicillins Allergy (Verified 10/22/18 11:47) Unknown - Type of Care/Length of Stay Estimated LOS: Convalescent Care Less Than 30 days Type of Care Needed: Skilled Rehab Potential: Good Prognosis: Good - Additional Orders/Day of Discharge Day of Discharge: 11/12/18 - Follow Up Care Primary Care Physician: Maxi Steele [Primary Care Provider] - Please follow up with your Primary Care Physician in: in 1-2 week Please Follow Up With: Ra Webber MD When: COPD. For PFT in 3-4 week Please Follow Up With: Dwain Daly MD When: in 4-6 weeks for PE
[2018-11-12] MEDS: Fludrocortisone Acetate 0.1 MG Tablet PO (09:06)
[2018-11-12] MEDS: Citalopram 20 MG Tablet PO (09:06)
[2018-11-12] MEDS: APIXABAN 5 MG TABLET PO (09:06)
[2018-11-12] MEDS: predniSONE 20 MG Tablet 40 MG PO (09:06)
[2018-11-12] MEDS: Aspirin 81 MG TAB.CHEW PO (09:06)
[2018-11-12] MEDS: Furosemide 40 MG Tablet PO (09:06)
[2018-11-12] MEDS: Metoprolol Tartrate 25 MG Tablet PO (09:07)
--- NOTE | 2018-11-12 09:54 | PHA.DC.MR ---
Pharmacy Service has performed discharge medication reconciliation for this patient upon transfer to [facility]. The patient's discharge medication list was reviewed for discrepancies and discrepancies were resolved. Home Medications Cholecalciferol (Vitamin D3) [Vitamin D3] 50,000 unit PO QMONTH 10/22/18 Citalopram Hydrobromide [Citalopram HBr] 20 mg PO DAILY 10/22/18 Fludrocortisone Acetate 0.1 mg PO DAILY 10/22/18 Fluticasone/Vilanterol [Breo Ellipta 100-25 Mcg INH] 1 each IH DAILY 10/22/18 Haloperidol Decanoate 100 mg IM UD 10/22/18 Haloperidol Lactate 1 ml PO TID 10/22/18 [place] Carbonate 300 mg PO TID 10/22/18 Lorazepam [Ativan] 2 mg PO TID 10/22/18 Olanzapine [Zyprexa] 2.5 mg PO TID 10/22/18 traZODone [Desyrel] 50 mg PO QHS 10/22/18 Apixaban [Eliquis] 5 mg PO BID 11/09/18 Haloperidol Lactate 2 ml PO QHS 11/09/18 Furosemide [Lasix] 40 mg PO DAILY tablet 11/12/18 Ipratropium/Albuterol Sulfate [Duoneb] 3 ml INHALATION [id number] ampul.neb 11/12/18 Metoprolol Tartrate [Lopressor (beta yolanda)] 25 mg PO BID tablet 11/12/18 Nicotine [Nicoderm] 14 mg TRANSDERM. DAILY patch 11/12/18 Prednisone 10 mg PO UD #30 tablet 11/12/18
[2018-11-12] MEDS: guaiFENesin 1,200 MG Tablet 1200 MG PO (10:15)
--- NOTE | 2018-11-12 10:53 | PCM.DC.SUM ---
Discharge Date and Diagnosis Date of Admission: 11/09/18 Date of Discharge: 11/12/18 - Primary Discharge Diagnosis Adenovirus URI/bronchitis and residual recent right lower lobe pneumonia Mild COPD exacerbation - Secondary Discharge Diagnosis Chronic Problems Pulmonary emboli (Chronic) Schizoaffective disorder (Chronic) Dementia (Chronic) Chronic alcohol abuse (Chronic) Nicotine dependence (Chronic) Chronic hepatitis C (Chronic) Hypertension (Chronic) Hospital Course and Treatment Imaging Results: 11/12/18 05:55 Chest PA and Lateral [RAD] AM (NON MEDS) Summary of Care Provided: [] This is a 62 years old male patient presented to the medicine because of shortness of breath, found to have mild acute COPD exacerbation and A. fib with RVR, had a recent history of community acquired pneumonia, new onset A. fib with RVR and and pulmonary embolism. At this time, I think patient also may have some element of mild acute systolic CHF. #1 mild acute COPD exacerbation/hypoxia: Chest x-ray reviewed, revealed bilateral basilar heterogenous opacities more on the right base which are corresponding to the pneumonia that he had 2 weeks ago, suggestive of residual recent pneumonia. He might have adenovirus bronchitis/superinfection. Chest x-ray reported as progressive infiltrates in both lungs, worse on left lower lobe. Patient is on DuoNeb and IV steroids. At this time, I doubt active pneumonia, patient completed cefdinir after discharge 2 weeks ago. He has been afebrile for more than 48 hours; off antibiotics, no leukocytosis, tachypnea or hypoxia. Blood and urine cultures are negative. Patient is on oral prednisone after discontinuation of IV steroid. Respiratory panel shows adenovirus. Continue incentive spirometry, chest physiotherapy, bronchodilator. Repeat chest x-ray PA and lateral reviewed and shows a residual infiltrates but no worsening. Infectious disease was consulted for further opinion and Dr. Dominguez agrees that he does not need further antibiotic but repeat chest x-ray in 3-4 weeks. Chest x-ray was ordered. #2 atrial flutter/fib with RVR: Patient was on IV Cardizem drip, now in sinus bradycardia. He was diagnosed for first time with new onset A. fib with RVR 2 weeks ago, was discharged on metoprolol and Eliquis. 2D echocardiogram that was done on October 22, 2018 revealed ejection fraction of 50%, mild global hypokinesis of the left ventricle and pulmonary artery pressure of 40. Patient has been off IV Cardizem drip, now in sinus bradycardia. Metoprolol decreased to 25 mg twice daily. Strawberry is 0.9, within normal limit. Strawberry also causes bradycardia but is in normal range. #3 probable mild acute systolic CHF: This is based on symptoms of worsening shortness of breath, elevated BNP, chest x-ray findings and echocardiogram with ejection fraction 50% and global hypokinesis of the left ventricle. BNP is elevated 631. Continue Lasix 40 mg IV daily. He is to Lasix 40 g daily for 1 week and then as needed for leg swelling #4 recent history of community-acquired pneumonia, most probably viral pneumonia, adenovirus: Completed course of cefdinir after discharge from the hospital. At this time, I doubt active or acute pneumonia. Chest x-ray findings are corresponded to the CTA findings that was done. Admission. Patient is afebrile, no leukocytosis. Blood cultures negative for more than 48 hours. Urine culture is negative. Respiratory panel is positive for adenovirus #5 recent history of pulmonary embolism: Continue Eliquis. Aspirin discontinued as patient does not have history of coronary artery disease. #6 hypertension: Blood pressure stable, continue metoprolol. #7 COPD: Plan as above, continue DuoNeb, start albuterol, DC IV steroids, start oral prednisone. #8 schizoaffective disorders: Continue Celexa, Zyprexa, Ativan, lithium and haloperidol #9 chronic alcohol abuse/nicotine abuse: Stable, no acute issues. #10 DVT prophylaxis: Continue Eliquis. Discharge medication reconciliation done. Discharge follow-up instructions completed. Discharge process discussed with the patient and all questions were answered to patient's satisfaction.. Total time spent, exact 35 minutes on discharge meds reconciliation, examination, review of imaging and blood test and discussion with the patient on follow-up instructions. Subjective: Patient does not have fever chills. Heart rate is improved and in 60s. Blood pressure 130/80. No tachypnea or hypoxia. - Physical Exam General: Alert, Oriented x3, Cooperative HEENT: Atraumatic, PERRLA, EOMI, Normocephalic Neck: Supple, No JVD, Negative Carotid Bruits Lungs: Clear to auscultation, No rhonchi, No wheeze, No rales, Diminished - Air entry is diminished in both lower lobes probably from atelectasis Cardiovascular: Regular rate, Regular Rhythm, Normal S1, Normal S2, No murmurs Abdomen: Bowel Sounds Present, Soft, Non Tender, Non-Distended Extremities: No edema, Capillary Refill Less than 3 Seconds Skin: No rashes, No breakdown Musculoskeletal: No Tenderness to Palpation of Joints or Extremities, Arthritic Changes, Muscle Wasting Lymphatic: No Cervical, Supraclavicular, or Inguinal Adenopathy Neurological: Cranial nerves II-XII grossly intact, Deep Tendon Reflexes 2+/4 and Symmetrical, Neuro grossly intact Psych/Mental Status: Normal Affect, Appropriate Vital Signs Temp Pulse Resp BP Pulse Ox 97.9 F 57 L 16 139/91 H 94 11/12/18 03:49 11/12/18 07:31 11/12/18 07:31 11/12/18 03:49 11/12/18 07:31 Oxygen Flow Rate (L/min) 2 Oxygen Delivery Method Room Air Weight: 176 lb Body Mass Index (BMI) 21.4 Intake and Output for Last 24 Hours 11/10/18 11/11/18 11/12/18 23:59 23:59 23:59 Intake Total 4790 / 4790 1520 / 1520 Output Total 700 / 700 1250 / 1250 Balance 4090 / 4090 270 / 270 Microbiology Past 72 Hours 11/09/18 12:00 Blood Culture - Preliminary Blood Culture (Wb) - Right Forearm No growth in 48 hours. 11/09/18 11:45 Blood Culture - Preliminary Blood Culture (Wb) - Left Forearm No growth in 48 hours. 11/09/18 13:05 Urine Culture - Final Urine Catheter - Catheter Culture exhibits no growth. 11/10/18 11:09 Respiratory Panel (PCR) - Final Mucosa - Nasopharyngeal Adenovirus Laboratory Tests Past 24 Hrs 11/11/18 11/12/18 11/12/18 10:10 06:30 06:30 WBC 8.2 RBC 4.14 L Hgb 13.2 Hct 40.8 MCV 98.6 H MCH 31.9 MCHC 32.4 RDW 14.5 RDW Differential 51.2 H Plt Count 135 L MPV 12.1 H Immature Gran % (Auto) 0.200 Neut % (Auto) 67.0 Lymph % (Auto) 22.6 [place] % (Auto) 8.4 Eos % (Auto) 1.7 Baso % (Auto) 0.1 Absolute Neuts (auto) 5.5 Absolute Lymphs (auto) 1.86 Total Counted Not Reportable Sodium 144 Potassium 3.6 Chloride 111 H Carbon Dioxide 27.0 Anion Gap 6 BUN 13 Creatinine 0.52 L Estim Creat Clear Calc 164.18 Est GFR (MDRD) Af Amer 208 Est GFR (MDRD) Non-Af 172 BUN/Creatinine Ratio 25.2 H Glucose 81 Calcium 8.2 L Strawberry 0.90 Home Medications: Medications to take at Discharge Cholecalciferol (Vitamin D3) [Vitamin D3] 50,000 unit PO QMONTH 10/22/18 Citalopram Hydrobromide [Citalopram HBr] 20 mg PO DAILY 10/22/18 Fludrocortisone Acetate 0.1 mg PO DAILY 10/22/18 Fluticasone/Vilanterol [Breo Ellipta 100-25 Mcg INH] 1 each IH DAILY 10/22/18 Haloperidol Decanoate 100 mg IM UD 10/22/18 Haloperidol Lactate 1 ml PO TID 10/22/18 [place] Carbonate 300 mg PO TID 10/22/18 Lorazepam [Ativan] 2 mg PO TID 10/22/18 Olanzapine [Zyprexa] 2.5 mg PO TID 10/22/18 traZODone [Desyrel] 50 mg PO QHS 10/22/18 Apixaban [Eliquis] 5 mg PO BID 11/09/18 Haloperidol Lactate 2 ml PO QHS 11/09/18 Furosemide [Lasix] 40 mg PO DAILY tablet 11/12/18 Guaifenesin [Mucinex] 1,200 mg PO BID #0 tablet 11/12/18 Ipratropium/Albuterol Sulfate [Duoneb] 3 ml INHALATION [id number] ampul.neb 11/12/18 Metoprolol Tartrate [Lopressor (beta yolanda)] 25 mg PO BID tablet 11/12/18 Nicotine [Nicoderm] 14 mg TRANSDERM. DAILY patch 11/12/18 Prednisone 10 mg PO UD #30 tablet 11/12/18 Following Prescrptions Were Given to Patient: Prednisone 10 mg PO UD #30 tablet Primary Care Physician: Maxi Steele [Primary Care Provider] - Please follow up with your Primary Care Physician in: in 1-2 week Please Follow Up With: Ra Webber MD When: COPD. For PFT in 3-4 week Please Follow Up With: Dwain Daly MD When: in 4-6 weeks for PE Medical Necessity - Tobacco Use Smoking Status: Current every day smoker Tobacco Use: Cigarettes Meaningful Use Info Meaningful Use Diagnoses (Choose all that apply): None applicable Code Visit Inpatient E&M: 30318 Disch Hosp
--- NOTE | 2018-11-12 11:20 | CASEMGMT ---
DEBI called [facility] and let them know patient will be returning today. Melani WASHINGTON ORGAN GRINDER
--- NOTE | 2018-11-12 11:41 | PCM.HP.ID ---
Problem List (1) COPD (chronic obstructive pulmonary disease) Status: Acute Reason for Consult: adenovirus Consulted by: Dr. Atkinson History of Present Illness: The patient is a 62 year old M with schizophrenia, presented with several days of cough with yellow sputum, SOB, nausea, chills, not feeling well. Admitted here, sx improved, wbc normal, afebrile. Feeling better without abx. D/c planned for today. Full ROS Performed and neg except as noted above. - Medical History Past Medical History (Chronic Problems): Chronic Problems Pulmonary emboli (Chronic) Schizoaffective disorder (Chronic) Dementia (Chronic) Chronic alcohol abuse (Chronic) Nicotine dependence (Chronic) Chronic hepatitis C (Chronic) Hypertension (Chronic) Allergies/Adverse Reactions: Allergies Penicillins Allergy (Verified 10/22/18 11:47) Unknown Home Medications: Ambulatory Orders Medication Instructions Recorded Cholecalciferol (Vitamin D3) 50,000 unit PO QMONTH 10/22/18 [Vitamin D3] Citalopram Hydrobromide 20 mg PO DAILY 10/22/18 [Citalopram HBr] Fludrocortisone Acetate 0.1 mg PO DAILY 10/22/18 Fluticasone/Vilanterol [Breo 1 each IH DAILY 10/22/18 Ellipta 100-25 Mcg INH] Haloperidol Decanoate 100 mg IM UD 10/22/18 Haloperidol Lactate 1 ml PO TID 10/22/18 [place] Carbonate 300 mg PO TID 10/22/18 Lorazepam [Ativan] 2 mg PO TID 10/22/18 Olanzapine [Zyprexa] 2.5 mg PO TID 10/22/18 traZODone [Desyrel] 50 mg PO QHS 10/22/18 Apixaban [Eliquis] 5 mg PO BID 11/09/18 Haloperidol Lactate 2 ml PO QHS 11/09/18 Furosemide [Lasix] 40 mg PO DAILY tablet 11/12/18 Ipratropium/Albuterol Sulfate 3 ml INHALATION [id number] 11/12/18 [Duoneb] ampul.neb Metoprolol Tartrate [Lopressor 25 mg PO BID tablet 11/12/18 (beta yolanda)] Nicotine [Nicoderm] 14 mg TRANSDERM. DAILY patch 11/12/18 Prednisone 10 mg PO UD #30 tablet 11/12/18 - Social History Tobacco Use: cigarettes Vital Signs Temp Pulse Resp BP Pulse Ox 97.8 F 60 18 130/80 H 92 11/12/18 09:04 11/12/18 09:07 11/12/18 09:04 11/12/18 09:04 11/12/18 09:04 Oxygen Flow Rate (L/min) 2 Oxygen Delivery Method Room Air Weight: 79.832 kg Body Mass Index (BMI) 21.4 Microbiology Past 72 Hours 11/09/18 12:00 Blood Culture - Preliminary Blood Culture (Wb) - Right Forearm No growth in 48 hours. 11/09/18 11:45 Blood Culture - Preliminary Blood Culture (Wb) - Left Forearm No growth in 48 hours. 11/09/18 13:05 Urine Culture - Final Urine Catheter - Catheter Culture exhibits no growth. 11/10/18 11:09 Respiratory Panel (PCR) - Final Mucosa - Nasopharyngeal Adenovirus Laboratory Tests Past 24 Hrs 11/12/18 11/12/18 06:30 06:30 WBC 8.2 RBC 4.14 L Hgb 13.2 Hct 40.8 MCV 98.6 H MCH 31.9 MCHC 32.4 RDW 14.5 RDW Differential 51.2 H Plt Count 135 L MPV 12.1 H Immature Gran % (Auto) 0.200 Neut % (Auto) 67.0 Lymph % (Auto) 22.6 [place] % (Auto) 8.4 Eos % (Auto) 1.7 Baso % (Auto) 0.1 Absolute Neuts (auto) 5.5 Absolute Lymphs (auto) 1.86 Total Counted Not Reportable Sodium 144 Potassium 3.6 Chloride 111 H Carbon Dioxide 27.0 Anion Gap 6 BUN 13 Creatinine 0.52 L Estim Creat Clear Calc 164.18 Est GFR (MDRD) Af Amer 208 Est GFR (MDRD) Non-Af 172 BUN/Creatinine Ratio 25.2 H Glucose 81 Calcium 8.2 L - Other Studies Radiology: [] reviewed Other Studies: [] Route of nutrition/ use of supplements: [] Nutritional Intake: [] IV Site: [] [place] Catheter: [] - Physical Exam General: Alert, Cooperative, No apparent distress, - - oriented x2 HEENT: Atraumatic, PERRLA, EOMI Neck: Supple, No Nodes Lungs: Clear to auscultation, Normal air movement Cardiovascular: Regular rate, Regular Rhythm Abdomen: Soft, Non Tender, Non-Distended Extremities: No edema Skin: No rashes IV Site: Peripheral, without redness Musculoskeletal: No Tenderness to Palpation of Joints or Extremities Neurological: Cranial nerves II-XII grossly intact - Assessment/Plan Antibiotics: [] Assessment/Plan: [] adenovirus URI - improved, lungs clear on exam, no wbc or fever here. Ok for d/c off of abx, repeat cxr in a few weeks Thank you, will follow, d/w Dr. Atkinson
--- NOTE | 2018-11-12 13:03 | CASEMGMT ---
Faxed orders to [facility]. Called [facility] to set up transport. They can transport patient via wc van at 215. However, SW has to call [facility] Transportation for [facility] so they can approve [facility] transporting patient. They approved the transport. Auth number [id number]. DEBI called [facility] and let them know patient will be picked up at 215. RN was notified and she notified patient. DEBI also notified smelter charger and patient's guardian, Ramez Parra. Plan: d/c back to [facility] under intermediate level of care. [facility] transported via wc van. Melani WASHINGTON MSW
== END 2018-11-12 14:35 | disposition intermediate care facility (04) | DRG 190 ==
LOC: ED 13:49 → PCU 14:54
PROVIDERS: Hospitalist; Admitting Provider Family Medicine; Emergency Provider Emergency Medicine; Family Provider Family Medicine; PCP Family Medicine; Visit Provider Internal Medicine
DX: J44.0 Chronic obstructive pulmonary disease with (acute) lower respiratory infection (principal); J96.01 Acute respiratory failure with hypoxia; I50.21 Acute systolic (congestive) heart failure; J12.0 Adenoviral pneumonia; J20.8 Acute bronchitis due to other specified organisms; J44.1 Chronic obstructive pulmonary disease with (acute) exacerbation; J06.9 Acute upper respiratory infection, unspecified; F17.210 Nicotine dependence, cigarettes, uncomplicated; F25.9 Schizoaffective disorder, unspecified; I48.91 Unspecified atrial fibrillation; F03.90 Unspecified dementia, unspecified severity, without behavioral disturbance, psychotic disturbance, mood disturbance, and anxiety; B18.2 Chronic viral hepatitis C; F10.10 Alcohol abuse, uncomplicated; B97.0 Adenovirus as the cause of diseases classified elsewhere; I11.0 Hypertensive heart disease with heart failure; Z86.711 Personal history of pulmonary embolism; Z79.01 Long term (current) use of anticoagulants; Z79.899 Other long term (current) drug therapy
CPT/HCPCS: 36415; 36600; 71045; 71046; 80048; 80053; 80178; 81001; 82803; 83605; 83735; 83880; 84484; 85025; 85610; 85730; 87040; 87086; 87633; 93005; 94640; 97162; 97166; 99285; J7030; J7050; A4216; J1940

== ENCOUNTER → 2018-12-03 06:31 | Outpatient (CLI) | payer MEDICARE, MEDICAID, SELFPAY ==
[2018-11-13 09:57] VITALS: BMI 22.3
--- NOTE | 2018-12-03 06:42 | ECHOD_ITS ---
Reason For Study: AFIB RVR Procedure This was a 2D Doppler, Color Flow transthoracic echocardiogram. Exam performed in department. Left Ventricle Normal LV size. Left ventricular systolic function is normal. The estimated ejection fraction is 60 %. Normal diastology for age. No regional wall motion abnormalities noted. Right Ventricle Normal RV size. Normal systolic function. Atria The left atrium is moderately enlarged. The right atrium is moderately enlarged. Intact atrial septum. Mitral Valve Normal mitral valve. Tricuspid Valve Normal tricuspid valve. Mild to moderate (1-2+) tricuspid valve insufficiency. Pulmonary artery systolic pressure is 43 mmHg. Aortic Valve Normal aortic valve. Pulmonic Valve Normal pulmonic valve. Great Vessels Normal aortic root. The pulmonary artery is normal size. Normal inferior vena cava. Pericardium/Pleural No pericardial effusion. Medication Performed a rapid injection of agitated mix of 9 cc saline and 1cc air to assess for atrial septal defect. MMode/2D Measurements & Calculations LVIDd: 4.6 cm IVSd: 0.95 cm Ao root diam: 3.3 cm LVIDs: 3.4 cm LVPWd: 0.96 cm RVDd: 4.4 cm FS: 25.6 % LAV(MOD-bp): 85.3 ml LVAd ap4: 45.1 cm2 SV(MOD-sp4): 89.4 ml LAV(MOD-bp) Indexed: 39.9 ml/m2 EDV(MOD-sp4): 185.1 ml LAV(MOD-sp2): 84.9 ml EDV(sp4-el): 192.9 ml LAV(MOD-sp4): 67.7 ml LVAs ap4: 29.5 cm2 ESV(MOD-sp4): 95.7 ml ESV(sp4-el): 97.1 ml EF(MOD-sp4): 48.3 % EF(sp4-el): 49.6 % SV(sp4-el): 95.7 ml LA A4 area: 25.3 cm2 LA dimension(2D): 3.9 cm RA A4 area: 29.2 cm2 Time Measurements MV dec time: 0.18 sec Doppler Measurements & Calculations MV E max colt: 78.2 cm/sec Lat Peak E' Colt: 10.8 cm/sec Med Peak E' Colt: 11.1 cm/sec MV A max colt: 56.3 cm/sec E/E' lat: 7.2 E/E' med: 7.0 MV E/A: 1.4 Ao V2 max: 134.0 cm/sec LV V1 max: 104.1 cm/sec PA V2 max: 126.6 cm/sec Ao max P.2 mmHg LV V1 max P.3 mmHg TR max colt: 312.6 cm/sec TR max P.3 mmHg Interpretation Summary Normal LV size. Left ventricular systolic function is normal. The estimated ejection fraction is 60 %. Normal diastology for age. Mild to moderate (1-2+) tricuspid valve insufficiency. Ordering Physician: Maxi Steele Referring Physician: Maxi Steele Performed By: Zeina Brunner RDCS
--- NOTE | 2018-12-03 17:14 | STRESSREP ---
Stress Test Report Pharmacologic myocardial perfusion stress test. 62-year-old man with a history of atrial fibrillation. Stress protocol: The resting EKG demonstrates sinus bradycardia with a rate of 61 bpm normal intervals are noted occasional premature ventricular complexes are noted. 0.1 mg of regadenoson was infused per usual protocol followed by Intravenous saline flush injection continuous EKG monitoring was performed. The maximum heart rate attained was 77 bpm which was 49% of maximum predicted heart rate the maximum workload was 1 metabolic equivalent. At rest there were no ST or T wave changes noted suggest abnormal flow reserve. At peak infusion nonspecific ST-T wave changes were noted. Myocardial perfusion protocol. 11.6 mCi of technetium 99m sestamibi was injected at rest. 0.4 mg of regadenoson was infused per usual protocol peak infusion 32.5 mCi of technetium 99m sestamibi was injected stress images were obtained stress and rest images were reconstructed and compared in the short axis vertical long horizontal long axis. Gated images were also obtained Perfusion SPECT analysis: Review of the stress images demonstrate a normal cardiac silhouette size. The inferior septal wall of the stress images appears to have mild to moderate reduction of perfusion noted. The resting images demonstrate moderate improvement in perfusion suggesting evidence of inferior septal ischemia to a mild to moderate degree. There is a significant amount of GI attenuation artifact also noted. Gated SPECT analysis: The gated ejection fraction is noted to be 51%. Conclusion: Abnormal pharmacologic myocardial perfusion stress test with evidence of inferoseptal ischemia. The GI attenuation artifact could be falsely obscuring part of the inferoseptal region.
== END ==
PROVIDERS: Family Provider Family Medicine; PCP Family Medicine; Referring Provider Family Medicine; Visit Provider Family Medicine
DX: R94.31 Abnormal electrocardiogram [ECG] [EKG] (principal); I48.91 Unspecified atrial fibrillation
CPT/HCPCS: 78452; 93017; 93306; A9500; A4216; J2785

== ENCOUNTER → 2019-01-24 08:03 | Outpatient (CLI) | payer MEDICARE, MEDICAID, SELFPAY ==
[2018-12-17 08:28] VITALS: BMI 23.3
[2019-01-14 15:27] VITALS: BMI 22.5
--- NOTE | 2019-01-24 12:59 | PFT ---
INTRODUCTION: The patient is a 63-year-old male that presents for pulmonary function studies secondary to a diagnosis of COPD. Respiratory therapy reports good patient effort. Bronchodilators were used during testing. INTERPRETATION: Forced expiration spirometry demonstrates the presence of a severe large airways obstructive ventilatory defect. There was no significant response to aerosolized bronchodilators, based upon strict ATS criteria. Spirograms are of fair quality and do not plateau indicating slow emptying of the lungs. Body plethysmography was performed and reveals an elevated RV to 150% of predicted, indicative of underlying air trapping. Diffusing capacity by single breath CO is reduced at 49% of predicted. IMPRESSION: Irreversible severe large airways obstructive ventilatory defect with associated air trapping and symmetric reduction in diffusing capacity.
== END ==
PROVIDERS: Family Provider Family Medicine; PCP Family Medicine; Referring Provider Internal Medicine Critical Care Medicine; Visit Provider Internal Medicine Critical Care Medicine
DX: J44.9 Chronic obstructive pulmonary disease, unspecified (principal)
CPT/HCPCS: 94060; 94726; 94729

== ENCOUNTER 2019-06-01 08:04 | Inpatient (IN) | payer MEDICARE, MEDICAID, SELFPAY ==
[2019-05-20 15:33] VITALS: BMI 22.6
[2019-06-01] VITALS (16 sets, daily range): BP systolic 109–141; BP diastolic 68–80; PULSE 57–78; RESP 18–29; TEMP 36.6–37.1; O2SAT 88–95; BMI 23.0; BMI 22.6
--- NOTE | 2019-06-01 08:11 | EKG12_ITS ---
Test Reason : Blood Pressure : / mmHG Vent. Rate : 063 BPM Atrial Rate : 063 BPM P-R Int : 158 ms QRS Dur : 074 ms QT Int : 448 ms P-R-T Axes : 054 007 -08 degrees QTc Int : 458 ms Normal sinus rhythm Nonspecific T wave abnormality Abnormal ECG Confirmed by HENNY SLADE, SHEN ([id number]), make up editor JOESPH CLAIRE ([id number]) on 06/02/2019 2:58:18 PM Referred By: Naresh Franks Confirmed By:SHEN INMAN MD
--- NOTE | 2019-06-01 08:15 | RAD_ITS ---
STUDY: X-RAY CHEST REASON FOR EXAM: Male, 63 years old. Shortness of breath. TECHNIQUE: Single AP portable view of the chest. COMPARISON: 12 November 2018 FINDINGS: Prominent interstitial markings are present with basilar areas of airspace disease not excluded. There is no demonstrated pleural abnormality. There is borderline cardiomegaly. Normal mediastinum and jan. Normal visualized pulmonary arteries. Normal visualized aortic arch and descending thoracic aorta. Normal visualized thoracic spine. Normal visualized ribs, clavicles, and shoulders. There is no demonstrated abnormality of the visualized soft tissue structures of the upper abdomen. RAD/Chest 1 View (Portable) IMPRESSION: Interstitial prominence concerning for underlying component of interstitial edema with early basilar alveolar edema not excluded. Electronically Signed: Paul Wray DO at 8:34 EDT , Service support ,
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
[2019-06-01] MEDS: Ipratropium/Albuterol Sulfate 3 ML AMPUL.NEB INHALATION ×3 (08:25→19:21)
[2019-06-01 08:26] LABS: Absolute Lymphocyte Count 0.97 X10^3/uL (0.83-4.51); Absolute Neutrophil Count 7.7 X10^3/uL (2.0-7.7); Basophil# 0.04 X10^3/uL; Basophil% 0.4 % (0-1); Eosinophil# 0.23 X10^3/uL; Eosinophils% 2.3 % (0-5); Hematocrit 39.3 % (40-54); Hemoglobin 12.7 g/dL (13.0-16.5); Lymphocyte # 0.97 X10^3/ul (4.0); Lymphocyte % 9.9 % (19-41); Mean Corp Hgb Conc 32.3 g/dL (32-36); Mean Platelet Vol. 12.4 fl (6.2-12.0); Monocyte# 0.82 X10^3/uL; Monocyte% 8.3 % (0-10); NRBC Flagged by Analyzer 0 % (0-5); Neutrophil # 7.72 X10^3/uL (2.7-7.7); Neutrophil % 78.6 % (47-70); Platelet Count 108 K/mm3 (150-450); RBC Distribution Width CV 13.1 % (11.6-14.6); RBC Distribution Width SD 47.4 fl (35.1-43.9); Red Blood Count 3.97 M/mm3 (4.6-6.2); White Blood Count 9.8 K/mm3 (4.4-11.0)
--- NOTE | 2019-06-01 08:34 | ED.RN ---
Permission to treat by guardian Ramez Parra [phone]
[2019-06-01 08:44] LABS: Anion Gap 4 (5-15); BUN 8 mg/dL (7-18); BUN/Creat Ratio 12.8 RATIO (10-20); Calcium,Total 9.1 mg/dL (8.5-10.1); Chloride 104 mmol/L (98-107); Creatinine, Serum 0.63 mg/dL (0.70-1.30); EST Glomerular Filtration Rate 137 mL/min (>60); Est Glom Filt Rate - Afr Amer 166 mL/min (>60); Estimated Creatinine Clearance 143.76 ml/min; Glucose 98 mg/dL (74-106); Potassium 3.9 mmol/L (3.5-5.1); Sodium Level 138 mmol/L (136-145)
[2019-06-01 08:54] LABS: BNP,B-Type NATRIURETIC PEPTIDE 187.5 pg/mL (0-100)
[2019-06-01 09:02] LABS: D-Dimer Quantitative (DVT/PE) 2.03 FEU/ug/m (0.27-0.49)
--- NOTE | 2019-06-01 09:24 | CT_ITS ---
STUDY: CTA CHEST REASON FOR EXAM: Male, 63 years old. Shortness of breath. RADIATION DOSAGE (If Supplied By Facility): CTDIvol = ( 22.06 ) mGy, DLP = ( 498.74 ) mGycm TECHNIQUE: The examination was performed with the intravenous administration of 10CC IV Isovue 370. Post-processing of the angiographic images was performed, with multiplanar reformation and 3D reconstruction. Individualized dose optimization techniques were used for this CT. COMPARISON: 22 October 2018 CTA chest FINDINGS: Normal enhancement of the main pulmonary artery and right and left pulmonary arteries. Normal enhancement of the bilateral peripheral pulmonary arteries. There is no demonstrated pulmonary embolism. Normal thoracic aorta and visualized great vessels. There is no demonstrated aortic dissection. There are calcifications of the coronary arteries. Normal mediastinum. Normal hilar regions. Normal visualized trachea and bronchi. The lungs are well expanded. Basilar atelectasis with right lower lung areas of linear consolidation present concerning for infiltrate versus aspiration with mild linear regions of airspace disease also overlying the left lower lung. Minimal bilateral pleural effusions are present. Normal chest wall structures. Normal osseous structures. Normal visualized upper abdomen. CT/CTA Chest W/WO Contrast IMPRESSION: 1. No evidence of pulmonary embolism or aortic dissection. 2. Bilateral basilar regions of atelectasis with linear streaky regions of airspace disease with differential including or bronchial inflammation with aspiration pneumonia not excluded, clinically correlate. Electronically Signed: Paul Wray DO at 10:13 EDT , Service support ,
[2019-06-01] MEDS: Ceftriaxone 1 GM/50 ML BAG IV (09:54)
--- NOTE | 2019-06-01 11:06 | NURSING ---
DR DEO JORDAN
[2019-06-01] MEDS: MethylPREDNISolone 125 MG/2 ML Vial IV (11:17)
--- NOTE | 2019-06-01 11:18 | NURSING ---
[address] PNEUMONIA TERELETSKY
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
[2019-06-01] MEDS: Lithium Carbonate 300mg Capsule 300 MG PO ×2 (16:48→21:57)
[2019-06-01] MEDS: Haloperidol Lactate 10 MG/5 ML UDC 2 MG PO (16:48)
[2019-06-01] MEDS: LORazepam 1 MG Tablet 2 MG PO ×2 (17:03→21:56)
[2019-06-01] MEDS: traZODone 50 MG Tablet PO (21:56)
[2019-06-01] MEDS: Haloperidol Lactate 10 MG/5 ML UDC 4 MG PO (21:56)
[2019-06-01] MEDS: Metoprolol Tartrate 25 MG Tablet PO (21:57)
[2019-06-01] MEDS: OLANZapine 10 MG Tablet PO (21:58)
[2019-06-01] MEDS: guaiFENesin 1,200 MG Tablet 1200 MG PO (21:58)
[2019-06-01] MEDS: 0.9% NaCl Peripheral Flush Adult/Peds IV (22:07)
[2019-06-02] VITALS (14 sets, daily range): BP systolic 137–148; BP diastolic 74–87; PULSE 55–87; RESP 16–20; TEMP 36.6–37.2; O2SAT 88–94
[2019-06-02] MEDS: LORazepam 1 MG Tablet 2 MG PO ×4 (01:27→21:19)
[2019-06-02] MEDS: Haloperidol Lactate 10 MG/5 ML UDC 5 MG PO (03:37)
[2019-06-02] MEDS: Fludrocortisone Acetate 0.1 MG Tablet 0.2 MG PO (07:28)
[2019-06-02] MEDS: Lithium Carbonate 300mg Capsule 300 MG PO ×3 (07:29→21:28)
[2019-06-02] MEDS: Citalopram 20 MG Tablet 30 MG PO (07:29)
[2019-06-02] MEDS: Furosemide 20 MG Tablet PO (07:30)
[2019-06-02] MEDS: Haloperidol Lactate 10 MG/5 ML UDC 2 MG PO ×3 (07:30→17:32)
[2019-06-02] MEDS: guaiFENesin 1,200 MG Tablet 1200 MG PO ×2 (07:31→21:20)
--- NOTE | 2019-06-02 08:13 | CPS ---
Pt. took O2 NC out of nose prior to [employer] entering. Discussed with pt. importance of wearing NC. Checked pulse ox and was reading RA on 88%. Put NC back in pts nose at 5L. Pt. immediately took it back out. Explained to pt. that he needs to wear his NC. He refused and told [employer] to not place it back in his nose.
--- NOTE | 2019-06-02 09:32 | CASEMGMT ---
[facility] faxed updates to [facility], which is where patient resides. Melani WASHINGTON MSW
[2019-06-02] MEDS: Ceftriaxone 1 GM/50 ML BAG IV (09:56)
--- NOTE | 2019-06-02 09:59 | PN_ITS ---
<Yuliana Dowd - Last Filed: 06/02/19 10:07> Patient Problems: Active and Suspected Problems (Last Reviewed 05/20/19 @ 15:30 by Jessica England) Pneumonia (Acute) Subjective: Patient seen and examined. Drowsy this morning. Reports improvement in shortness of breath and cough. Denies fever, chills. On 5 L nasal cannula. - Physical Exam General: - - Drowsy, no apparent distress. HEENT: Atraumatic, PERRLA, EOMI, Normocephalic Neck: Supple, No JVD, Negative Carotid Bruits Lungs: Diminished, Rhonchi, Wheezes Cardiovascular: Regular rate, Regular Rhythm, No murmurs Abdomen: Bowel Sounds Present, Soft, Non Tender, Non-Distended Extremities: No clubbing, No cyanosis, Capillary Refill Less than 3 Seconds, Edema - Trace edema bilateral lower extremities Skin: No rashes, No breakdown, - - Left eye ecchymosis Musculoskeletal: No Tenderness to Palpation of Joints or Extremities Neurological: Cranial nerves II-XII grossly intact, Neuro grossly intact Psych/Mental Status: Flat Affect Vital Signs Temp Pulse Resp BP Pulse Ox 98.1 F 69 18 139/80 H 93 06/02/19 09:20 06/02/19 09:20 06/02/19 09:20 06/02/19 09:20 06/02/19 09:20 Oxygen Flow Rate (L/min) 5 Oxygen Delivery Method Nasal Cannula Weight: 185 lb 14.4 oz Body Mass Index (BMI) 22.6 Intake and Output for Last 24 Hours 05/31/19 06/01/19 06/02/19 23:59 23:59 23:59 Intake Total 1540 / 1540 120 / 120 Output Total 120 / 120 Balance 1420 / 1420 120 / 120 Microbiology Past 72 Hours 06/01/19 20:15 Legionella Antigen - Final Urine, Random 06/01/19 20:15 Streptococcus pneumoniae Antigen (M - Final Urine, Random Medical Necessity - Tobacco Use Smoking Status: Current every day smoker Tobacco Use: Cigarettes Assessment/Plan All Active Problems (Last Reviewed 05/20/19 @ 15:30 by Jessica England) Pneumonia (Acute) Atrial fibrillation with RVR (Resolved 10/2018) 1. Acute on chronic hypoxic respiratory failure secondary to community-acquired pneumonia and COPD exacerbation-continue supplement oxygen to maintain O2 at or above 90%. Albuterol and DuoNeb aerosols. Walking pulse ox prior to discharge. 2. Community-acquired pneumonia-CTA without evidence of PE, bilateral basilar infiltrates. Send sputum for culture. IV azithromycin and IV Rocephin. Urine for strep and Legionella negative. Albuterol and DuoNeb aerosols. Mucinex 1200 mg p.o. twice daily. 3. Acute exacerbation of COPD-respiratory panel pending. IV Solu-Medrol. Albuterol and DuoNeb aerosols. 4. Paroxysmal atrial fibrillation-currently sinus rhythm. Continue metoprolol 5. History of PE-completed treatment with Eliquis. 6. Adrenal insufficiency-continue Florinef regimen. 7. Chronic diastolic CHF-no acute CHF. Echocardiogram November 2018 with EF 60%, mild to moderate tricuspid valve insufficiency. Follows with Dr. Goodman. Cont inue home Lasix regimen. 8. Tobacco dependence-encouraged cessation. Nicotine replacement patch if desired. 9. Schizoaffective disorder/frontotemporal dementia/anxiety/depression/chronic alcohol dependence-continue home Zyprexa, Ativan, Haldol, citalopram, lithium regimen. Resides in psychiatric facility. DVT prophylaxis-Lovenox subcu This patient was seen by NIHARIKA Fitch under the supervision of Dr. Kulkarni. <Vlad Kulkarni - Last Filed: 06/02/19 16:52> Subjective: No shortness of breath. - Physical Exam General: - HEENT: Atraumatic, Normocephalic Oral: Moist Mucosa, No Gingival or Mucosal Lesions/ Ulcerations Lungs: Diminished, - - coarse breath sounds bilaterally. Cardiovascular: Regular rate, Regular Rhythm, No murmurs Abdomen: Bowel Sounds Present, Soft, Non Tender, Non-Distended Extremities: No Calf Tenderness, Edema Skin: No rashes, No breakdown, - Musculoskeletal: No Tenderness to Palpation of Joints or Extremities Neurological: Cranial nerves II-XII grossly intact, Neuro grossly intact Vital Signs Temp Pulse Resp BP Pulse Ox 37.2 C 63 18 137/87 H 94 06/02/19 15:20 06/02/19 16:21 06/02/19 15:20 06/02/19 15:20 06/02/19 15:20 Oxygen Flow Rate (L/min) 4 Oxygen Delivery Method Nasal Cannula Weight: 84.323 kg Body Mass Index (BMI) 22.6 Intake and Output for Last 24 Hours 05/31/19 06/01/19 06/02/19 23:59 23:59 23:59 Intake Total 1540 / 1540 785 / 785 Output Total 120 / 120 Balance 1420 / 1420 785 / 785 Microbiology Past 72 Hours 06/01/19 15:10 Respiratory Panel (PCR) - Final Mucosa - Nose Rhinovirus 06/01/19 20:15 Legionella Antigen - Final Urine, Random 06/01/19 20:15 Streptococcus pneumoniae Antigen (M - Final Urine, Random Assessment/Plan Patient seen and examined independently. Data reviewed. I agree with the above note by the nurse practitioner. 1. Acute on chronic hypoxic respiratory failure * Patient was 88% upon arrival with a documented labored breathing. Patient was placed on Venturi mask and has eventually been weaned down since then but still requiring 4 L of oxygen. * Secondary to suspected pneumococcal pneumonia, rhinovirus and acute exacerbation of COPD * Wean oxygen as tolerated 2. Suspected pneumococcal pneumonia * Patient does have some subtle infiltrates in the bases slightly worse than previous images * Urinary antigens for Streptococcus and Legionella were negative * On IV azithromycin and IV ceftriaxone 3. Acute exacerbation of COPD * Improving * Change of steroids over to prednisone on the * Continue with bronchodilators Code Visit Inpatient E&M: 27427 Subs Hosp L2
[2019-06-02] MEDS: Furosemide 20 MG/2 ML VIAL IV (10:54)
[2019-06-02] MEDS: Enoxaparin 40 MG/0.4 ML Syringe SC (10:54)
[2019-06-02] MEDS: Ipratropium/Albuterol Sulfate 3 ML AMPUL.NEB INHALATION ×2 (13:23→19:27)
[2019-06-02] MEDS: predniSONE 20 MG Tablet 40 MG PO (17:32)
[2019-06-02] MEDS: traZODone 50 MG Tablet PO (21:19)
[2019-06-02] MEDS: Haloperidol Lactate 10 MG/5 ML UDC 4 MG PO (21:19)
[2019-06-02] MEDS: OLANZapine 10 MG Tablet PO (21:28)
[2019-06-02] MEDS: Metoprolol Tartrate 25 MG Tablet PO (21:28)
[2019-06-03] VITALS (11 sets, daily range): BP systolic 105–134; BP diastolic 69–82; PULSE 58–78; RESP 15–32; TEMP 36.7–36.9; O2SAT 87–96
[2019-06-03] MEDS: Ipratropium/Albuterol Sulfate 3 ML AMPUL.NEB INHALATION ×3 (00:48→13:31)
[2019-06-03] MEDS: Ceftriaxone 1 GM/50 ML BAG IV (09:30)
[2019-06-03] MEDS: Citalopram 20 MG Tablet 30 MG PO (09:33)
[2019-06-03] MEDS: Furosemide 20 MG Tablet PO (09:33)
[2019-06-03] MEDS: Lithium Carbonate 300mg Capsule 300 MG PO ×2 (09:33→13:51)
[2019-06-03] MEDS: LORazepam 1 MG Tablet 2 MG PO ×2 (09:33→13:51)
[2019-06-03] MEDS: guaiFENesin 1,200 MG Tablet 1200 MG PO (09:33)
[2019-06-03] MEDS: Enoxaparin 40 MG/0.4 ML Syringe SC (09:34)
[2019-06-03] MEDS: Haloperidol Lactate 10 MG/5 ML UDC 2 MG PO ×2 (09:34→11:39)
--- NOTE | 2019-06-03 12:23 | PCM.EXTCARCO ---
- Diet 06/01/19 13:25 Diet: Regular Diet Is pt able to select menu?: No - Routine Orders/Code Status Enema Type: Fleetz Enema Frequency: Daily PRN Suppository Type: Dulcolax 10mg O2 Liters per Minute: 2 O2 Frequency: Continuous Keep PO Greater than or Equal to (%): 90 Code Status: Full Code - Problem/Diagnosis (1) Pneumonia Status: Acute Current Visit: Yes (2) History of pulmonary embolism Status: Chronic Current Visit: No (3) Adrenal insufficiency Status: Chronic Current Visit: No (4) Acute diastolic (congestive) heart failure Status: Chronic Current Visit: No (5) Secondary pulmonary arterial hypertension Status: Chronic Current Visit: No (6) Non-rheumatic tricuspid valve insufficiency Status: Chronic Current Visit: No (7) Nicotine dependence Status: Chronic Current Visit: No (8) Atrial fibrillation with RVR Status: Resolved Current Visit: No (9) Chronic alcohol abuse Status: Chronic Current Visit: No (10) COPD (chronic obstructive pulmonary disease) Status: Acute Current Visit: Yes - Allergies/Procedures Done in Hospital Allergies/Adverse Reactions: Allergies Penicillins Allergy (Verified 06/01/19 08:06) Unknown Procedures: None - Type of Care/Length of Stay Estimated LOS: More Than 30 Days Type of Care Needed: Intermediate Rehab Potential: Fair Prognosis: Fair - Additional Orders/Day of Discharge H&P will serve as current which was dated: 06/01/19 Day of Discharge: 06/03/19 - Dietary and Speech Recommendations Dietitian Recommendations/Changes: Will order ONS medpass for increased nutrition if consumed. Rec continue liberal Regular diet d/t dementia and poor po intake - Follow Up Care Primary Care Physician: Alexis Steele MD [Primary Care Provider] - Please follow up with your Primary Care Physician in: 1 Week
--- NOTE | 2019-06-03 12:29 | DS.PCM_ITS ---
<Yuliana Dowd - Last Filed: 06/03/19 12:36> Discharge Date and Diagnosis Date of Admission: 06/01/19 Date of Discharge: 06/03/19 - Primary Discharge Diagnosis Active and Suspected Problems (Last Reviewed 05/20/19 @ 15:30 by Jessica England) 1. Acute on chronic hypoxic respiratory failure secondary to community-acquired pneumonia and COPD exacerbation 2. Community-acquired pneumonia 3. Acute exacerbation of COPD secondary to rhinovirus 4. Paroxysmal atrial fibrillation 5. History of PE 6. Adrenal insufficiency 7. Chronic diastolic CHF 8. Tobacco dependence 9. Schizoaffective disorder/frontotemporal dementia/anxiety/depression/chronic alcohol dependence - Secondary Discharge Diagnosis Chronic Problems (Last Reviewed 05/20/19 @ 15:30 by Jessica England) History of pulmonary embolism (Chronic 10/2018) Adrenal insufficiency (Chronic) Acute diastolic (congestive) heart failure (Chronic 11/10/18) Secondary pulmonary arterial hypertension (Chronic) Non-rheumatic tricuspid valve insufficiency (Chronic) Nicotine dependence (Chronic) Chronic alcohol abuse (Chronic) Hospital Course and Treatment Imaging Results: Diagnostic Data Chest X-Ray 06/01/19 08:15 IMPRESSION: Interstitial prominence concerning for underlying component of interstitial edema with early basilar alveolar edema not excluded. Electronically Signed: Paul Wray DO at 8:34 EDT , Service support , Chest CTA 06/01/19 09:24 IMPRESSION: 1. No evidence of pulmonary embolism or aortic dissection. 2. Bilateral basilar regions of atelectasis with linear streaky regions of airspace disease with differential including or bronchial inflammation with aspiration pneumonia not excluded, clinically correlate. Electronically Signed: Paul Wray DO at 10:13 EDT , Service support , Operations: None Procedures: None Summary of Care Provided: The patient is a 63 year old M admitted 06/01/2019 due to shortness of breath, cough. 1. Acute on chronic hypoxic respiratory failure secondary to community-acquired pneumonia and COPD exacerbation due to rhinovirus-continue supplement oxygen to maintain O2 at or above 90%. Wean as tolerated. Albuterol aerosol as needed. 2. Community-acquired pneumonia-CTA without evidence of PE, bilateral basilar infiltrates. IV azithromycin and IV Rocephin during admission. Urine for strep and Legionella negative. Completed course of azithromycin. Discharge on Omnicef 300 mg twice daily to complete 7-day course of antibiotic therapy. 3. Acute exacerbation of COPD secondary to rhinovirus-IV Solu-Medrol during admission. Transition to prednisone taper at discharge. Continue albuterol aerosols as needed. Continue supplemental oxygen as noted above. 4. Paroxysmal atrial fibrillation-currently sinus rhythm. Continue metoprolol 5. History of PE-completed treatment with Eliquis. CTA without PE. 6. Adrenal insufficiency-continue Florinef, prednisone regimen. 7. Chronic diastolic CHF-no acute CHF. Echocardiogram November 2018 with EF 60%, mild to moderate tricuspid valve insufficiency. Follows with Dr. Goodman. Continue home Lasix regimen. 8. Tobacco dependence-encouraged cessation. 9. Schizoaffective disorder/frontotemporal dementia/anxiety/depression/chronic alcohol dependence-continue home Zyprexa, Ativan, Haldol, citalopram, lithium regimen. Resides in SNF/psychiatric facility. General: Alert, no acute distress HEENT: Atraumatic, PERRLA, EOMI, Normocephalic Neck: Supple, No JVD, Negative Carotid Bruits Lungs: Diminished, Rhonchi, Wheezes-improved from prior Cardiovascular: Regular rate, Regular Rhythm, No murmurs Abdomen: Bowel Sounds Present, Soft, Non Tender, Non-Distended Extremities: No clubbing, No cyanosis, Capillary Refill Less than 3 Seconds, Edema -Trace edema bilateral lower extremities Skin: No rashes, No breakdown, Left eye ecchymosis Musculoskeletal: No Tenderness to Palpation of Joints or Extremities Neurological: Cranial nerves II-XII grossly intact, Neuro grossly intact Psych/Mental Status: Flat Affect Patient seen and examined prior to discharge. Physical assessment as noted above. Patient is stable for discharge with follow up recommendations as noted above. This patient was seen by NIHARIKA Fitch under the supervision of Dr. Kulkarni. - Physical Exam Vital Signs Temp Pulse Resp BP Pulse Ox 98.0 F 67 18 132/74 H 87 06/03/19 09:30 06/03/19 09:30 06/03/19 09:30 06/03/19 09:30 06/03/19 12:27 Oxygen Flow Rate (L/min) 2 Oxygen Delivery Method Nasal Cannula Weight: 185 lb 14.4 oz Body Mass Index (BMI) 22.6 Intake and Output for Last 24 Hours 06/01/19 06/02/19 06/03/19 23:59 23:59 23:59 Intake Total 1540 / 1540 1245 / 1245 1025 / 1025 Output Total 120 / 120 Balance 1420 / 1420 1245 / 1245 1025 / 1025 Microbiology Past 72 Hours 06/01/19 15:10 Respiratory Panel (PCR) - Final Mucosa - Nose Rhinovirus 06/01/19 20:15 Legionella Antigen - Final Urine, Random 06/01/19 20:15 Streptococcus pneumoniae Antigen (M - Final Urine, Random Home Medications: Medications to take at Discharge Cholecalciferol (Vitamin D3) [Vitamin D3] 50,000 unit PO QMONTH 10/22/18 Citalopram Hydrobromide [Citalopram HBr] 30 mg PO DAILY 10/22/18 Fluticasone/Vilanterol [Breo Ellipta 100-25 Mcg INH] 1 ea IH DAILY 10/22/18 Haloperidol Decanoate 100 mg IM QMONTH 10/22/18 Haloperidol Lactate 1 ml PO TID 10/22/18 [place] Carbonate 300 mg PO TID 10/22/18 Lorazepam [Ativan] 2 mg PO TID 10/22/18 Olanzapine [Zyprexa] 10 mg PO QHS 10/22/18 traZODone [Desyrel] 50 mg PO QHS 10/22/18 Haloperidol Lactate 2 ml PO QHS 11/09/18 acetaminophen 325 mg tablet 650 mg PO Q4H PRN tab 12/17/18 docusate sodium 100 mg capsule 100 mg PO BID PRN 12/17/18 fludrocortisone 0.1 mg tablet 0.2 mg PO DAILY tab 12/17/18 guaifenesin 100 mg/5 mL oral liquid 200 mg PO Q4H PRN 12/17/18 haloperidol 5 mg tablet 5 mg PO Q6H PRN tab 12/17/18 lorazepam 2 mg tablet 2 mg PO Q4H PRN tab 12/17/18 lorazepam 2 mg/mL injection syringe 2 mg IM Q4H PRN ml 12/17/18 montelukast 10 mg tablet 10 mg PO QHS 12/17/18 nicotine (polacrilex) 2 mg buccal mini lozenge 2 mg MUCOUS MEMBRANE Q2H PRN ea 12/17/18 polyethylene glycol 3350 17 gram/dose oral powder 17 g PO DAILY PRN 12/17/18 Acetaminophen [Tylenol] 650 mg PO Q4H PRN 06/01/19 Albuterol Aerosols [Ventolin Aerosols] 2.5 mg INHALATION Q4H PRN PRN 06/01/19 Furosemide [Lasix] 20 mg PO DAILY 06/01/19 Furosemide [Lasix] 40 mg PO DAILY PRN 06/01/19 Metoprolol Tartrate [Lopressor (beta yolanda)] 25 mg PO QHS 06/01/19 Prednisone 5 mg PO DAILY 06/01/19 Tiotropium [place] [Spiriva Respimat] 2 puff INHALATION DAILY 06/01/19 Cefdinir [Omnicef [equiv]] 300 mg PO Q12H #10 cap 06/03/19 Prednisone See Taper PO DAILY #30 tab 06/03/19 Following Prescrptions Were Given to Patient: Cefdinir [Omnicef [equiv]] 300 mg PO Q12H #10 cap Prescription Printed Prednisone See Taper PO DAILY #30 tab Prescription Printed Primary Care Physician: Alexis Steele MD [Primary Care Provider] - Please follow up with your Primary Care Physician in: 1 Week Disposition: Senior Care facility Minutes spent on discharge:: 35 Patient Condition:: Stable Medical Necessity - Tobacco Use Smoking Status: Current every day smoker Tobacco Use: Cigarettes Meaningful Use Info Meaningful Use Diagnoses (Choose all that apply): None applicable <Vlad Kulkarni - Last Filed: 06/03/19 15:35> Discharge Date and Diagnosis - Secondary Discharge Diagnosis Chronic Problems (Last Updated 06/03/19 @ 12:29 by NIHARIKA Fitch) History of pulmonary embolism (Chronic 10/2018) Adrenal insufficiency (Chronic) Acute diastolic (congestive) heart failure (Chronic 11/10/18) Secondary pulmonary arterial hypertension (Chronic) Non-rheumatic tricuspid valve insufficiency (Chronic) Nicotine dependence (Chronic) Chronic alcohol abuse (Chronic) Hospital Course and Treatment Operations: None Procedures: None Summary of Care Provided: Patient seen and examined independently. Data reviewed. I agree with the above note by the nurse practitioner. The patient is a 63 year old M presents with shortness of breath. 1. Acute on chronic hypoxic respiratory failure * Patient was 88% upon arrival with a documented labored breathing. Patient was placed on Venturi mask and has eventually been weaned down since then but still requiring 4 L of oxygen. * Secondary to suspected pneumococcal pneumonia, rhinovirus and acute exacerbation of COPD * Wean oxygen as tolerated 2. Suspected pneumococcal pneumonia * Patient does have some subtle infiltrates in the bases slightly worse than previous images * Urinary antigens for Streptococcus and Legionella were negative * On IV azithromycin and IV ceftriaxone 3. Acute exacerbation of COPD * Improving * Change of steroids over to prednisone on the * Continue with bronchodilators [] - Physical Exam General: Alert, No apparent distress HEENT: Atraumatic, Normocephalic Oral: Moist Mucosa, No Gingival or Mucosal Lesions/ Ulcerations Neck: No Nodes, Thyroid Normal Size and Texture Lungs: Clear to auscultation, Normal air movement, No rhonchi, No wheeze Cardiovascular: Regular rate, Regular Rhythm, Normal S1, Normal S2, No murmurs Abdomen: Bowel Sounds Present, Soft, Non Tender, Non-Distended Vital Signs Temp Pulse Resp BP Pulse Ox 36.8 C 60 18 105/69 96 06/03/19 13:49 06/03/19 13:49 06/03/19 13:49 06/03/19 13:49 06/03/19 13:49 Oxygen Flow Rate (L/min) 2 Oxygen Delivery Method Room Air Weight: 84.323 kg Body Mass Index (BMI) 22.6 Intake and Output for Last 24 Hours 06/01/19 06/02/19 06/03/19 23:59 23:59 23:59 Intake Total 1540 / 1540 1245 / 1245 1025 / 1025 Output Total 120 / 120 Balance 1420 / 1420 1245 / 1245 1025 / 1025 Microbiology Past 72 Hours 06/01/19 15:10 Respiratory Panel (PCR) - Final Mucosa - Nose Rhinovirus 06/01/19 20:15 Legionella Antigen - Final Urine, Random 06/01/19 20:15 Streptococcus pneumoniae Antigen (M - Final Urine, Random Discharge Diet: No Restrictions Discharge Activity: Return to Normal Activity Disposition: Senior Care facility Minutes spent on discharge:: 35 Patient Condition:: Fair Medical Necessity - Tobacco Use Smoking Status: Current every day smoker Tobacco Use: Cigarettes Meaningful Use Info Meaningful Use Diagnoses (Choose all that apply): None applicable Code Visit Inpatient E&M: 71883 Disch Hosp
--- NOTE | 2019-06-03 13:41 | NURSING ---
call placed to [facility], report given to nurse whom cares for patient
--- NOTE | 2019-06-03 13:47 | CASEMGMT ---
Patient is ready for discharge back to [facility]. [place] called [facility] [place] to get picked up at [phone] via cot. DEBI called [facility] and let patient's RN know he will be discharged today. DEBI also let them know he will be picked up at 330. DEBI notified RN. Faxed orders to [facility]. DEBI also called patient's legal guardian, Ramez Parra and left him a voice mail letting him know patient is being discharged back to [facility] today. Plan: d/c back to [facility] under intermediate level of care. 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 [facility] [place]. Melani WASHINGTON MSW
--- NOTE | 2019-06-03 14:48 | CASEMGMT ---
DEBI received a call from patient's guardian. He just wanted to confirm that patient is being discharged today. DEBI told him that is accurate. He thanked DEBI for calling earlier and letting him know. Melani GOMEZ
== END 2019-06-03 14:45 | disposition skilled nursing facility (03) | DRG 189 ==
LOC: ED 08:33 → PCU 11:33
PROVIDERS: Admitting Provider Internal Medicine; Emergency Provider Emergency Medicine; Family Provider Family Medicine; PCP Family Medicine; Referring Provider Internal Medicine
DX: J96.21 Acute and chronic respiratory failure with hypoxia (principal); J18.9 Pneumonia, unspecified organism; J44.1 Chronic obstructive pulmonary disease with (acute) exacerbation; J44.0 Chronic obstructive pulmonary disease with (acute) lower respiratory infection; E27.40 Unspecified adrenocortical insufficiency; I50.32 Chronic diastolic (congestive) heart failure; I11.0 Hypertensive heart disease with heart failure; I48.0 Paroxysmal atrial fibrillation; Z86.711 Personal history of pulmonary embolism; F17.210 Nicotine dependence, cigarettes, uncomplicated; F32.9 Major depressive disorder, single episode, unspecified; F41.9 Anxiety disorder, unspecified; F25.9 Schizoaffective disorder, unspecified; F10.20 Alcohol dependence, uncomplicated; G31.09 Other frontotemporal neurocognitive disorder; I27.21 Secondary pulmonary arterial hypertension; I36.1 Nonrheumatic tricuspid (valve) insufficiency; Z79.51 Long term (current) use of inhaled steroids; Z79.899 Other long term (current) drug therapy; B97.4 Respiratory syncytial virus as the cause of diseases classified elsewhere
CPT/HCPCS: 71045; 71275; 80048; 83880; 84484; 85025; 85379; 87449; 87633; 93005; 94640; 99285; 99406; J7050; Q9967; A4216; J1940